=== PATIENT | male | born 1985 | race Caucasian/White ===

== ENCOUNTER 2017-11-20 22:26 | Observation (INO) | payer OTHER ==
[~2017-11-20] VITALS: Ht 180.3 cm; Wt 70.5 kg
[~2017-11-20 22:26] MED LIST: ALBU17I INH; ASPI325T PO; ATEN-100 PO; BUPR-197 PO; ISOS20 PO; NITR0.4S SL; REME45TA PO
[2017-11-20 22:34] VITALS: BP 130/76; PULSE 93; RESP 16; TEMP 98.5; O2SAT 96
[2017-11-20] MEDS ORDERED: SODIUM CHLORIDE 0.9% FLUSH 10 ML FLUSH IVF PRN (22:45)
[2017-11-20] MEDS ORDERED: SODIUM CHLORID 0.9% 500 ML INJ 500 ML IV ONE (22:45)
[2017-11-20] MEDS ORDERED: NITROGLYCERIN-D5W 50 MG/250 ML 250 ML IV ONE (22:45)
[2017-11-20] MEDS ORDERED: NITROGLYCERIN/DEXTROSE 5% 250 ML for chest pain IV PRN (22:45)
--- NOTE | 2017-11-20 22:55 | PD ---
HPI Chief Complaint: Chest Pain Time Seen by Provider: 22:39 Travel History International Travel<30 days: No Contact w/Intl Traveler<30days: No Traveled to known affect area: No History of Present Illness HPI Is a 32-year-old man presents to the emergency department complaining of chest pain. He is in extensive cardiac history related to congenital heart disease as well as atherosclerotic CAD. 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 She also had 2 stents, most recently about a week and a half ago at [facility] in [place] he reports he had a stent placed after he had a non-ST elevation DE. He reports he also developed a DVT during that hospitalization and was placed on Coumadin. Reports having had a DVT in the past. He was kept in the hospital for about a week or so after the event and was discharged back to correctional facility. He was then moved to the correctional facility in the area here. Today started develop worsening chest pain that rated in the left arm, similar to his previous DE. He was given a total 6 nitroglycerin, 8 mg of morphine, and 650 mg of aspirin prior to arrival here. Still complains of pain. He also complains that he was cleaning today with bleach and touched his right eye with his glove and has had irritation in his right eye since that time. History Past Medical History Narrative Medical Congenital heart disease with ASD, mitral valve replacement, aortic valve replacement CAD with 2 stents Social History Alcohol Use: No Tobacco Use: No Allergies-Medications (Allergen,Severity, Reaction): Coded Allergies: egg (Unverified Allergy, Severe, THRAOT SWELLS, 11/20/17) ketorolac (Unverified Allergy, Severe, THROAT SWELLS, 11/20/17) lithium (Unverified Allergy, Severe, THROAT SWELLS, 11/20/17) tramadol (Unverified Allergy, Severe, THROAT SWELLS, 11/20/17) Reported Meds & Prescriptions Reported Meds & Active Scripts Active Reported Atenolol 25 Mg Tab 25 Mg PO DAILY Aspirin 325 Mg Tab 325 Mg PO DAILY Nitrostat (Nitroglycerin) 0.4 Mg Subl 0.4 Mg SL PRN 1 TAB SL EVERY 5 MINS X 3 PRN CHEST PAIN Remeron (Mirtazapine) 45 Mg Tab 45 Mg PO HS Wellbutrin (Bupropion HCl) 100 Mg Tab 100 Mg PO TID Isordil 20 Mg Tab (Isosorbide Dinitrate) 20 Mg Tab 20 Mg PO BID Proventil Mdi (Albuterol Sulfate) 17 Gm Aero 2 Puff INH Q8HPRN Review of Systems Except as stated in HPI: all other systems reviewed are Neg Physical Exam Narrative GENERAL: Well-appearing 32-year-old man, no acute distress per SKIN: Focused skin assessment warm/dry. HEAD: Atraumatic. Normocephalic. EYES: Right is injected with a little bit of periorbital swelling. Some tearing. Left eye is unremarkable. ENT: No nasal bleeding or discharge. Mucous membranes pink and moist. NECK: Trachea midline. No JVD. CARDIOVASCULAR: Regular rate and rhythm. No murmur appreciated. RESPIRATORY: No accessory muscle use. Clear to auscultation. Breath sounds equal bilaterally. GASTROINTESTINAL: Abdomen soft, non-tender, nondistended. Hepatic and splenic margins not palpable. MUSCULOSKELETAL: No obvious deformities. No clubbing. No cyanosis. No edema. NEUROLOGICAL: Awake and alert. No obvious cranial nerve deficits. Motor grossly within normal limits. Normal speech. PSYCHIATRIC: Appropriate mood and affect; insight and judgment normal. Data Data Last Documented VS Vital Signs Date Time Temp Pulse Resp B/P (MAP) Pulse Ox O2 Delivery O2 Flow Rate FiO2 11/20/17 23:15 90 130/76 11/20/17 22:34 98.5 16 96 Orders Orders Electrocardiogram (11/20/17 22:41) Ckmb (Isoenzyme) Profile (11/20/17 22:41) Complete Blood Count With Diff (11/20/17 22:41) Comprehensive Metabolic Panel (11/20/17 22:41) Magnesium (Mg) (11/20/17 22:41) Prothrombin Time / Inr (Pt) (11/20/17 22:41) Act Partial Throm Time (Ptt) (11/20/17 22:41) Troponin I (11/20/17 22:41) Chest, Single Ap (11/20/17 22:41) Ecg Monitoring (11/20/17 22:41) Iv Access Insert/Monitor (11/20/17 22:41) Oximetry (11/20/17 22:41) Oxygen Administration (11/20/17 22:41) Sodium Chloride 0.9% Flush (Ns Flush) (11/20/17 22:45) Sodium Chlorid 0.9% 500 Ml Inj (Ns 500 M (11/20/17 22:45) Eye Irrigation (11/20/17 22:41) Nitroglycerin-D5w 50 Mg/250 Ml (Nitrogly (11/20/17 23:00) Proparacaine 0.5% Opth Soln (Alcaine 0.5 (11/20/17 23:00) CKMB (11/20/17 22:45) CKMB% (11/20/17 22:45) ^ Obtain (11/21/17 00:25) Place In Observation (11/21/17 ) Vital Signs (Adult) Q4H (11/21/17 00:25) Activity Oob With Assistance (11/21/17 00:25) [employer]ox Machine Mechanic / Telemetry .CONTINUOUS (11/21/17 00:25) Intake + Output CRISTINA.QSHIFT (11/21/17 00:25) Diet Heart Healthy (11/21/17 Breakfast) Sodium Chloride 0.9% Flush (Ns Flush) (11/21/17 00:30) Sodium Chloride 0.9% Flush (Ns Flush) (11/21/17 09:00) Ondansetron Inj (Zofran Inj) (11/21/17 00:30) Comprehensive Metabolic Panel (11/21/17 06:00) Complete Blood Count With Diff (11/21/17 06:00) Troponin I (11/21/17 06:00) Troponin I (11/21/17 12:00) Scd Bilateral/Knee High CRISTINA.BID (11/21/17 00:25) Byron Bilateral/Knee High CRISTINA.QSHIFT (11/21/17 00:29) Acetaminophen (Tylenol) (11/21/17 00:30) Morphine Inj (Morphine Inj) (11/21/17 00:30) Oxycodone (Roxicodone) (11/21/17 00:30) Docusate Sodium-Senna (Rosa-Colace) (11/21/17 09:00) Magnesium Hydroxide Liq (Milk Of Magnesi (11/21/17 00:30) Sennosides (Senokot) (11/21/17 00:30) Bisacodyl Supp (Dulcolax Supp) (11/21/17 00:30) Lactulose Liq (Lactulose Liq) (11/21/17 00:30) Nitroglycerin 2% Oint (Nitroglycerin 2% (11/21/17 00:30) Lorazepam Inj (Ativan Inj) (11/21/17 00:45) Admit Order (Ed Use Only) (11/21/17 ) Labs Laboratory Tests Test 11/20/17 22:45 White Blood Count 9.2 TH/MM3 Red Blood Count 4.10 MIL/MM3 Hemoglobin 13.4 GM/DL Hematocrit 37.6 % Mean Corpuscular Volume 91.7 FL Mean Corpuscular Hemoglobin 32.7 PG Mean Corpuscular Hemoglobin Concent 35.7 % Red Cell Distribution Width 12.9 % Platelet Count 224 TH/MM3 Mean Platelet Volume 9.6 FL Neutrophils (%) (Auto) 49.1 % Lymphocytes (%) (Auto) 28.9 % Monocytes (%) (Auto) 9.4 % Eosinophils (%) (Auto) 9.6 % Basophils (%) (Auto) 3.0 % Neutrophils # (Auto) 4.5 TH/MM3 Lymphocytes # (Auto) 2.6 TH/MM3 Monocytes # (Auto) 0.9 TH/MM3 Eosinophils # (Auto) 0.9 TH/MM3 Basophils # (Auto) 0.3 TH/MM3 CBC Comment DIFF FINAL Differential Comment Prothrombin Time 10.1 SEC Prothromb Time International Ratio 1.0 RATIO Activated Partial Thromboplast Time 26.4 SEC Blood Urea Nitrogen 12 MG/DL Creatinine 1.01 MG/DL Random Glucose 92 MG/DL Total Protein 7.3 GM/DL Albumin 3.9 GM/DL Calcium Level 8.7 MG/DL Magnesium Level 1.9 MG/DL Alkaline Phosphatase 61 U/L Aspartate Amino Transf (AST/SGOT) 11 U/L Alanine Aminotransferase (ALT/SGPT) 17 U/L Total Bilirubin 0.3 MG/DL Sodium Level 143 MEQ/L Potassium Level 4.0 MEQ/L Chloride Level 109 MEQ/L Carbon Dioxide Level 24.8 MEQ/L Anion Gap 9 MEQ/L Estimat Glomerular Filtration Rate 87 ML/MIN Total Creatine Kinase 145 U/L Creatine Kinase MB 0.7 NG/ML Troponin I LESS THAN 0.02 NG/ML MDM Medical Decision Making Medical Screen Exam Complete: Yes Emergency Medical Condition: Yes Interpretation(s) My review of chest x-ray: Normal sinus rhythm at a rate of 84, normal axis, normal intervals, incomplete right bundle branch block, no evidence of acute ischemia. LABS: CBC unremarkable. CMP unremarkable. Troponin negative. C coags unremarkable. Chest x-ray hypoinflated. Differential Diagnosis CAD, PE, ACS, noncardiac chest pain, other Narrative Course Medical decision making INITIAL calls a 32-year-old man presents to the emergency department complaining of worsening chest pain. Reports history of CAD with recent DE and stent placement. Looks well. Also some chemical irritation to the right eye there is reports is from rubbing his eye with gloves to use to clean with bleach. Will continue irrigation of the right eye. He states he irrigated some already. Check labs, EKG, x-ray, reassess. FINAL: Initial workup is unremarkable. Patient complaining of ongoing pain. Given his recent history, I do not think patients appropriate candidate for the chest pain center. I spoke with Dr. Finney, who admit patient observation. Diagnosis Primary Impression: Chest pain Additional Impression: Eye irritation Omar Jimenez MD Nov 20, 2017 22:54
[2017-11-20 22:59] LABS: AUTOMATED NEUTROPHIL # 4.5 TH/MM3 (1.8-7.7); BASOPHIL # 0.3 TH/MM3 (0-0.2); EOSINOPHIL # 0.9 TH/MM3 (0-0.4); EOSINOPHIL % 9.6 % (0.0-4.0); HEMATOCRIT 37.6 % (39.0-51.0); HEMOGLOBIN 13.4 GM/DL (13.0-17.0); LYMPH % 28.9 % (9.0-44.0); LYMPHOCYTE # 2.6 TH/MM3 (1.0-4.8); MEAN CELL VOLUME 91.7 FL (80.0-100.0); MEAN CORPUSCULAR HEMOGLOBIN 32.7 PG (27.0-34.0); MEAN CORPUSCULAR HGB CONC 35.7 % (32.0-36.0); MEAN PLATELET VOLUME 9.6 FL (7.0-11.0); MONO % 9.4 % (0.0-8.0); MONOCYTE # 0.9 TH/MM3 (0-0.9); NEUT % 49.1 % (16.0-70.0); PLATELET COUNT 224 TH/MM3 (150-450); RED CELL DISTRIBUTION WIDTH 12.9 % (11.6-17.2); WHITE BLOOD COUNT 9.2 TH/MM3 (4.0-11.0)
[2017-11-20] MEDS ORDERED: PROPARACAINE HCL 0.5% OPHT SOLN 15 ML BTL RIGHT EYE ONE (23:00)
[2017-11-20] MEDS ORDERED: NITROGLYCERIN/DEXTROSE 5% 250 ML for chest pain IV ONE (23:00)
--- NOTE | 2017-11-20 23:11 | RADRPT ---
EXAM DATE/TIME: 11/20/2017 22:46 [facility] COMPARISON: CHEST SINGLE AP, September 12, 2011, 23:31. INDICATIONS : Chest pain MEDICAL HISTORY : Cardiovascular disease. SURGICAL HISTORY : Coronary artery stent. CABG. ENCOUNTER: Initial ACUITY: 1 day PAIN SCORE: 6/10 LOCATION: chest FINDINGS: The patient is status post sternotomy. The heart size is within normal limits. The lungs demonstrate low lung volume with suspected minimal compressive changes at the bases. No effusion is seen. CONCLUSION: Hypoinflated lungs. Luis F Parsons MD on November 20, 2017 at 23:08 Board Certified Radiologist. This report was verified electronically.
[2017-11-20 23:24] LABS: ALBUMIN 3.9 GM/DL (3.4-5.0); AST (GOT) 11 U/L (15-37); BICARBONATE 24.8 MEQ/L (21.0-32.0); BLOOD UREA NITROGEN 12 MG/DL (7-18); CALCIUM 8.7 MG/DL (8.5-10.1); CHLORIDE 109 MEQ/L (98-107); CREATININE 1.01 MG/DL (0.60-1.30); GLOMERULAR FILTRATION RATE 87 ML/MIN (>89); GLUCOSE,RANDOM 92 MG/DL (74-106); MAGNESIUM 1.9 MG/DL (1.5-2.5); SODIUM (NA) 143 MEQ/L (136-145)
[2017-11-20 23:25] LABS: ALT (GPT) 17 U/L (12-78)
[2017-11-20 23:29] LABS: ALKALINE PHOSPHATASE 61 U/L (45-117); TOTAL BILIRUBIN ADULT 0.3 MG/DL (0.2-1.0); TOTAL PROTEIN 7.3 GM/DL (6.4-8.2); TROPONIN I LESS THAN 0.02 NG/ML (0.02-0.05)
[2017-11-20 23:31] LABS: PROTHROMBIN TIME - PATIENT 10.1 SEC (9.8-11.6)
[2017-11-21] VITALS (9 sets, daily range): BP systolic 110–139; BP diastolic 68–80; PULSE 51–89; RESP 14–18; TEMP 97.6–98.2; O2SAT 95–100
[2017-11-21] MEDS ORDERED: SODIUM CHLORIDE 0.9% FLUSH 10 ML FLUSH IV FLUSH PRN (00:30)
[2017-11-21] MEDS ORDERED: BISACODYL 10 MG SUPP RECTAL PRN (00:30)
[2017-11-21] MEDS ORDERED: MAGNESIUM HYDROXIDE SUSP 30 ML CUP PO PRN (00:30)
[2017-11-21] MEDS ORDERED: SENNOSIDES 8.6 MG TAB PO PRN (00:30)
[2017-11-21] MEDS ORDERED: ONDANSETRON HCL 4 MG/2 ML VIAL IVP PRN (00:30)
[2017-11-21] MEDS ORDERED: LACTULOSE SYRUP 20 GM/30 ML CUP PO PRN (00:30)
[2017-11-21] MEDS ORDERED: NITROGLYCERIN 2% OINT 1 GM PACKET TOPICAL PRN (00:30)
[2017-11-21] MEDS ORDERED: ACETAMINOPHEN 325 MG TAB PO PRN (00:30)
[2017-11-21] MEDS: MORPHINE SULFATE 2 MG/ML INJ IV PUSH PRN ×5 (00:57→21:17)
--- NOTE | 2017-11-21 01:10 | HHI.HP ---
HPI Service [facility] Primary Care Physician No Primary Care Physician Admission Diagnosis Chest pain Diagnoses: (1) Chest pain Diagnosis: Principal (2) Eye irritation Diagnosis: Principal Travel History International Travel<30 Days: No Contact w/Intl Traveler <30 Da: No Traveled to Known Affected Are: No History of Present Illness This is a 32-year-old male with an apparent PMH of Congenital Heart Disease w/ ASD, s/p MVR and AVR in addition to CAD s/p Cardiac Stents who was brought to the ER by EMS w/ [employer]rections [employer] secondary to complaints of chest pain. Pt states pain is substernal, pressure-like, 10/10, radiates to back, no alleviating factors. S/p Morphine 8mg and NTG x6, states NTG and Morphine don' t help w/ pain, continues to complain of 10/10 pain. Reports he was recently admitted to [facility] for similar symptoms approx 1wk ago, had stent placed to LAD. Does not know which medications he's supposed to be taking. Also notes irritation to right eye after cleaning his cell w/ bleach and rubbing his eye, currently receiving irrigation. On arrival, BP 130/76, HR 93, O2 sat 96% on RA , Afebrile. CBC unremarkable. Chemistry essentially unremarkable except for GFR 87. Troponin negative. INR 1.0. CXR with hypoinflated lungs. EKG with no acute ischemia. Placed on Nitro gtt in ER, however no improvement in pain complaints. Review of Systems Except as stated in HPI: all other systems reviewed are Neg ROS: 14 point review of systems otherwise negative. Past Family Social History Past Medical History PMH: Congenital Heart Disease w/ ASD, s/p MVR and AVR in addition to CAD s/p Cardiac Stents Past Surgical History PAST SURGICAL HISTORY: Mitral Valve Replacement, Aortic Valve Replacement, Cardiac Stents Allergies: Coded Allergies: egg (Unverified Allergy, Severe, THRAOT SWELLS, 11/20/17) ketorolac (Unverified Allergy, Severe, THROAT SWELLS, 11/20/17) lithium (Unverified Allergy, Severe, THROAT SWELLS, 11/20/17) tramadol (Unverified Allergy, Severe, THROAT SWELLS, 11/20/17) Family History PAST FAMILY HISTORY: Reviewed. No h/o DM or CAD Social History PAST SOCIAL HISTORY: Negative for alcohol, tobacco or drugs. Currently in [facility] Physical Exam Vital Signs Vital Signs Date Time Temp Pulse Resp B/P (MAP) Pulse Ox O2 Delivery O2 Flow Rate FiO2 11/20/17 23:15 90 130/76 11/20/17 22:34 98.5 93 16 130/76 (94) 96 Physical Exam PE: GENERAL: Young white male in no acute distress. Officers at bedside. HEENT: PERRLA, EOMI. No scleral icterus or conjunctival pallor. No lid lag or facial droop. Right eye with irrigation. CARDIOVASCULAR: Regular rate and rhythm. No obvious murmurs to auscultation. No chest tenderness to palpation. RESPIRATORY: No obvious rhonchi or wheezing. Clear to auscultation. Breath sounds equal bilaterally. GASTROINTESTINAL: Abdomen soft, non-tender, nondistended. BS normal. MUSCULOSKELETAL: Extremities without clubbing, cyanosis, or edema. No obvious deformities. NEUROLOGICAL: Awake, alert and oriented x4. No focal neurologic deficits. Moving both upper and lower extremities spontaneously. Laboratory Laboratory Tests Test 11/20/17 22:45 White Blood Count 9.2 Red Blood Count 4.10 Hemoglobin 13.4 Hematocrit 37.6 Mean Corpuscular Volume 91.7 Mean Corpuscular Hemoglobin 32.7 Mean Corpuscular Hemoglobin Concent 35.7 Red Cell Distribution Width 12.9 Platelet Count 224 Mean Platelet Volume 9.6 Neutrophils (%) (Auto) 49.1 Lymphocytes (%) (Auto) 28.9 Monocytes (%) (Auto) 9.4 Eosinophils (%) (Auto) 9.6 Basophils (%) (Auto) 3.0 Neutrophils # (Auto) 4.5 Lymphocytes # (Auto) 2.6 Monocytes # (Auto) 0.9 Eosinophils # (Auto) 0.9 Basophils # (Auto) 0.3 CBC Comment DIFF FINAL Differential Comment Prothrombin Time 10.1 Prothromb Time International Ratio 1.0 Activated Partial Thromboplast Time 26.4 Blood Urea Nitrogen 12 Creatinine 1.01 Random Glucose 92 Total Protein 7.3 Albumin 3.9 Calcium Level 8.7 Magnesium Level 1.9 Alkaline Phosphatase 61 Aspartate Amino Transf (AST/SGOT) 11 Alanine Aminotransferase (ALT/SGPT) 17 Total Bilirubin 0.3 Sodium Level 143 Potassium Level 4.0 Chloride Level 109 Carbon Dioxide Level 24.8 Anion Gap 9 Estimat Glomerular Filtration Rate 87 Total Creatine Kinase 145 Creatine Kinase MB 0.7 Troponin I LESS THAN 0.02 Result Diagram: 11/20/17224411/20/172244 Caprini VTE Risk Assessment Caprini VTE Risk Assessment: No/Low Risk (score <= 1) Caprini Risk Assessment Model Point Value = 1 Point Value = 2 Point Value = 3 Point Value = 5 Age 41-60 Minor surgery BMI > 25 kg/m2 Swollen legs Varicose veins or History of unexplained or recurrent spontaneous Oral contraceptives or hormone replacement Sepsis (< 1 month) Serious lung disease, including pneumonia (< 1 month) Abnormal pulmonary function Acute myocardial infarction Congestive heart failure (< 1 month) History of inflammatory bowel disease Medical patient at bed rest Age 61-74 Arthroscopic surgery Major open surgery (> 45 min) Laparoscopic surgery (> 45 min) Malignancy Confined to bed (> 72 hours) Immobilizing plaster cast Central venous access Age >= 75 History of VTE Family history of VTE Factor V Leiden Prothrombin [id number] Lupus anticoagulant Anticardiolipin antibodies Elevated serum homocysteine Heparin-induced thrombocytopenia Other congenital or acquired thrombophilia Stroke (< 1 month) Elective arthroplasty Hip, pelvis, or leg fracture Acute spinal cord injury (< 1 month) Prophylaxis Regimen Total Risk Factor Score Risk Level Prophylaxis Regimen 0-1 Low Early ambulation 2 Moderate Order ONE of the following: *Sequential Compression Device (SCD) *Heparin 5000 units SQ BID 3-4 Higher Order ONE of the following medications: *Heparin 5000 units SQ TID *Enoxaparin/Lovenox 40 mg SQ daily (WT < 150 kg, CrCl > 30 mL/min) *Enoxaparin/Lovenox 30 mg SQ daily (WT < 150 kg, CrCl > 10-29 mL/min) *Enoxaparin/Lovenox 30 mg SQ BID (WT < 150 kg, CrCl > 30 mL/min) AND/OR *Sequential Compression Device (SCD) 5 or more Highest Order ONE of the following medications: *Heparin 5000 units SQ TID (Preferred with Epidurals) *Enoxaparin/Lovenox 40 mg SQ daily (WT < 150 kg, CrCl > 30 mL/min) *Enoxaparin/Lovenox 30 mg SQ daily (WT < 150 kg, CrCl > 10-29 mL/min) *Enoxaparin/Lovenox 30 mg SQ BID (WT < 150 kg, CrCl > 30 mL/min) AND *Sequential Compression Device (SCD) Assessment and Plan Problem List: (1) Chest pain ICD Code: R07.9 - Chest pain, unspecified (2) Eye irritation ICD Code: H57.8 - Other specified disorders of eye and adnexa Assessment and Plan A/P: 1. Chest Pain: reports extensive cardiac history including ASD, s/p MVR/AVR and recent admit to [facility] 1wk ago w/ Stent to LAD. Will attempt to obtain records for confirmation. Reports 10/10 pain not alleviated by Morphine or NTG , will d/c NTG gtt as no benefit. Morphine/Ativan prn for chest pain. Admit for Observation, place on telemetry, check serial cardiac enzymes. ASA, Statin , B-alicia. 2. Eye Irritation: Right eye irritation after rubbing eye w/ bleach, currently undergoing irrigation, will monitor. 3. DVT Prophylaxis: SCD/Teds 4. Social work for d/c planning as needed. 5. Case discussed at length w/ ER physician, labs/records/imaging reviewed by me. Michelle Siu MD Nov 21, 2017 01:10
[2017-11-21] MEDS: LORazepam 2 MG/ML VIAL IV PUSH PRN ×4 (02:50→22:58)
[2017-11-21] MEDS ORDERED: PROMETHAZINE INJ 25 MG/ML VIAL IM PRN (04:15)
[2017-11-21] MEDS: DOCUSATE SODIUM 50 MG/SENNA 8.6 MG TAB PO SCH ×2 (08:19→21:16)
[2017-11-21] MEDS ORDERED: PROT40TA PO (08:29)
[2017-11-21] MEDS ORDERED: CLON-409 PO (08:29)
[2017-11-21] MEDS ORDERED: ATOR10TA15 PO (08:29)
[2017-11-21] MEDS ORDERED: PLAV75TA29 PO (08:29)
[2017-11-21] MEDS: SODIUM CHLORIDE 0.9% FLUSH 10 ML FLUSH IV FLUSH SCH ×2 (08:48→21:16)
[2017-11-21] MEDS: METOPROLOL TARTRATE 25 MG TAB PO SCH ×2 (09:00→21:16)
[2017-11-21] MEDS ORDERED: ASPIRIN EC 81 MG TABEC PO SCH (09:00)
[2017-11-21] MEDS ORDERED: PRAVASTATIN SOD 40 MG TAB PO SCH (09:00)
--- NOTE | 2017-11-21 09:04 | PD.CONS ---
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 He has been maintained on asa, plavix , statin and isosorbide per patient. Patient is an inmate at a correctional facility and states he developed crushing anterior chest pain referring to L arm reminiscent of prior PR. Nitro and morphine have offered no relief of symptoms and he remains nauseated. Troponin level normal and EKG does not demonstrate concerning ST segment or T wave changes; he states they usually don' t. Review of Systems Consitutional: DENIES: Fatigue, Fever, Chills, Weight gain, Weight loss Respiratory: DENIES: Cough, Snoring, Shortness of breath, Wheezing, Sputum production Cardiovascular: DENIES: Palpitations, Syncope, Tachycardia Gastrointestinal: DENIES: Vomiting, Change in bowel habits, Reflux, Bloody stools, Melena Past Family Social History Allergies: Coded Allergies: Iodine and Iodide Containing Produc (Verified Allergy, Severe, 11/21/17) "throat swelling" egg (Unverified Allergy, Severe, THRAOT SWELLS, 11/20/17) ketorolac (Unverified Allergy, Severe, THROAT SWELLS, 11/20/17) lithium (Unverified Allergy, Severe, THROAT SWELLS, 11/20/17) ondansetron (Verified Allergy, Severe, 11/21/17) Throat swelling tramadol (Unverified Allergy, Severe, THROAT SWELLS, 11/20/17) Past Medical History Congenital Heart Disease w/ ASD, s/p MVR in addition to CAD s/p Cardiac Stents Past Surgical History Mitral Valve Replacement, ASD repair, Cardiac Stents Reported Medications Reported Meds & Active Scripts Active Reported Atorvastatin (Atorvastatin Calcium) 10 Mg Tab 10 Mg PO DAILY Clonidine ER 12 HR (Clonidine HCl) 0.1 Mg Tab 0.3 Mg PO DAILY Protonix (Pantoprazole Sodium) 40 Mg Tab 40 Mg PO DAILY Plavix (Clopidogrel Bisulfate) 75 Mg Tab 75 Mg PO DAILY Atenolol 25 Mg Tab 25 Mg PO DAILY Aspirin 325 mg (Aspirin) 325 Mg Tab 81 Mg PO DAILY Nitrostat (Nitroglycerin) 0.4 Mg Subl 0.4 Mg SL PRN 1 TAB SL EVERY 5 MINS X 3 PRN CHEST PAIN Remeron 45 mg (Mirtazapine) 45 Mg Tab 45 Mg PO HS Wellbutrin (Bupropion HCl) 100 Mg Tab 150 Mg PO BID Isordil 20 Mg Tab (Isosorbide Dinitrate) 20 Mg Tab 10 Mg PO DAILY Proventil Mdi (Albuterol Sulfate) 17 Gm Aero 2 Puff INH Q8HPRN Active Ordered Medications Current Medications Medications (Trade) Dose Ordered Sig/Arabella Route Start Time Stop Time Status Last Admin (NS Flush) 2 ml UNSCH PRN IV FLUSH 11/21/17 00:30 (NS Flush) 2 ml BID IV FLUSH 11/21/17 09:00 11/21/17 08:48 (Tylenol) 650 mg Q6H PRN PO 11/21/17 00:30 (Morphine Inj) 4 mg Q3H PRN IV PUSH 11/21/17 00:30 11/21/17 06:05 (Roxicodone) 5 mg Q4H PRN PO 11/21/17 00:30 11/21/17 08:39 (Rosa-Colace) 1 tab BID PO 11/21/17 09:00 (Milk Of Magnesia Liq) 30 ml Q12H PRN PO 11/21/17 00:30 (Senokot) 17.2 mg Q12H PRN PO 11/21/17 00:30 (Dulcolax Supp) 10 mg DAILY PRN RECTAL 11/21/17 00:30 (Lactulose Liq) 30 ml DAILY PRN PO 11/21/17 00:30 (Nitroglycerin 2% Oint) 0.5 inch Q6HR PRN TOPICAL 11/21/17 00:30 (Ativan Inj) 1 mg Q3H PRN IV PUSH 11/21/17 00:45 11/21/17 08:39 (Ecotrin Ec) 81 mg DAILY PO 11/21/17 09:00 11/21/17 08:38 (Pravachol) 40 mg DAILY PO 11/21/17 09:00 11/21/17 08:38 (Lopressor) 25 mg Q12HR PO 11/21/17 09:00 (Phenergan Inj) 12.5 mg Q6H PRN IM 11/21/17 04:15 Family History No h/o DM Social History Negative for alcohol, tobacco or drugs. Currently in Correctional Facility Physical Exam Vital Signs Vital Signs Date Time Temp Pulse Resp B/P (MAP) Pulse Ox O2 Delivery O2 Flow Rate FiO2 11/21/17 07:18 97.7 66 18 110/78 (89) 98 11/21/17 05:11 98.2 89 18 139/80 (99) 98 11/21/17 03:08 97.7 69 18 128/71 (90) 95 11/21/17 03:05 11/21/17 02:46 63 14 118/68 (85) 98 Room Air 11/20/17 23:15 90 130/76 11/20/17 22:34 98.5 93 16 130/76 (94) 96 Physical Exam GENERAL: SKIN: Warm and dry. HEAD: Atraumatic. Normocephalic. EYES: Pupils equal and round. No scleral icterus. ENT: No nasal bleeding or discharge. NECK: Trachea midline. No JVD. CARDIOVASCULAR: Regular rate and rhythm. no murmurs RESPIRATORY: No accessory muscle use. Clear to auscultation. Breath sounds equal bilaterally. GASTROINTESTINAL: Abdomen soft, non-tender, nondistended. Hepatic and splenic margins not palpable. MUSCULOSKELETAL: Extremities without clubbing, cyanosis, or edema. No obvious deformities. NEUROLOGICAL: Awake and alert. No obvious cranial nerve deficits. Normal speech. PSYCHIATRIC: Appropriate mood and affect; insight and judgment normal. Laboratory Laboratory Tests Test 11/20/17 22:45 White Blood Count 9.2 Red Blood Count 4.10 Hemoglobin 13.4 Hematocrit 37.6 Mean Corpuscular Volume 91.7 Mean Corpuscular Hemoglobin 32.7 Mean Corpuscular Hemoglobin Concent 35.7 Red Cell Distribution Width 12.9 Platelet Count 224 Mean Platelet Volume 9.6 Neutrophils (%) (Auto) 49.1 Lymphocytes (%) (Auto) 28.9 Monocytes (%) (Auto) 9.4 Eosinophils (%) (Auto) 9.6 Basophils (%) (Auto) 3.0 Neutrophils # (Auto) 4.5 Lymphocytes # (Auto) 2.6 Monocytes # (Auto) 0.9 Eosinophils # (Auto) 0.9 Basophils # (Auto) 0.3 CBC Comment DIFF FINAL Differential Comment Prothrombin Time 10.1 Prothromb Time International Ratio 1.0 Activated Partial Thromboplast Time 26.4 Blood Urea Nitrogen 12 Creatinine 1.01 Random Glucose 92 Total Protein 7.3 Albumin 3.9 Calcium Level 8.7 Magnesium Level 1.9 Alkaline Phosphatase 61 Aspartate Amino Transf (AST/SGOT) 11 Alanine Aminotransferase (ALT/SGPT) 17 Total Bilirubin 0.3 Sodium Level 143 Potassium Level 4.0 Chloride Level 109 Carbon Dioxide Level 24.8 Anion Gap 9 Estimat Glomerular Filtration Rate 87 Total Creatine Kinase 145 Creatine Kinase MB 0.7 Troponin I LESS THAN 0.02 Result Diagram: 11/20/17224411/20/172244 Imaging Last 24 hours Impressions Chest X-Ray 11/20/172240 Signed Impressions: Service Date/Time: , November 20, 2017 22:46 - CONCLUSION: Hypoinflated lungs. 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 He has been maintained on asa, plavix, statin and isosorbide per patient. Patient is an inmate at a correctional facility and states he developed crushing anterior chest pain referring to L arm reminiscent of prior PR. Nitro and morphine have offered no relief of symptoms and he remains nauseated. Troponin level normal and EKG does not demonstrate concerning ST segment or T wave changes; he states they usually don't. unstable angina- will proceed with lexiscan, keep npo 2D echo. monitor troponins Priyanka Garcia Nov 21, 2017 09:04
--- NOTE | 2017-11-21 09:44 | HHI.PR ---
Subjective Remarks Follow up on patient with CP. Patient seen and examined. Patient continues to complain of chest pain. He also endorses nausea but is eating peanut butter and paulina crackers and drinking a Gatorade. He denies any shortness of breath. He continues to have irritation in the right eye. He denies any fever or chills. He is afebrile. VSS. Objective Vitals Vital Signs Date Time Temp Pulse Resp B/P (MAP) Pulse Ox O2 Delivery O2 Flow Rate FiO2 11/21/17 07:18 97.7 66 18 110/78 (89) 98 11/21/17 05:11 98.2 89 18 139/80 (99) 98 11/21/17 03:08 97.7 69 18 128/71 (90) 95 11/21/17 03:05 11/21/17 02:46 63 14 118/68 (85) 98 Room Air 11/20/17 23:15 90 130/76 11/20/17 22:34 98.5 93 16 130/76 (94) 96 I/O 11/20/17 11/20/17 11/20/17 11/21/17 11/21/17 11/21/17 07:00 15:00 23:00 07:00 15:00 23:00 Intake Total 502.5 ml Balance 502.5 ml Intake IV Total 502.5 ml Result Diagram: 11/20/17224411/20/172244 Imaging Last Impressions Chest X-Ray 11/20/172240 Signed Impressions: Service Date/Time: October 22:46 - CONCLUSION: Hypoinflated lungs. Luis F Parsons MD Objective Remarks GENERAL: Well developed, well nourished young white male patient in no acute distress. Officers at bedside. Awake and alert. Sitting up in bed eating. HEENT: PERRLA, EOMI. No scleral icterus or conjunctival pallor. No lid lag or facial droop. Right eye swollen and erythematous. CARDIOVASCULAR: Regular rate and rhythm. No obvious murmurs to auscultation. No chest tenderness to palpation. RESPIRATORY: Nonlabored. Clear to auscultation. Breath sounds equal bilaterally. No obvious rhonchi or wheezing. GASTROINTESTINAL: Abdomen soft, non-tender, nondistended. BS normal. MUSCULOSKELETAL: Extremities without clubbing, cyanosis, or edema. No obvious deformities. RLE handcuffed to bed. NEUROLOGICAL: Awake and alert. Oriented. Motor and sensory functions grossly intact. No focal neurologic deficits. Moving both upper and lower extremities spontaneously. Medications and IVs Current Medications Medications (Trade) Dose Ordered Sig/Arabella Route Start Time Stop Time Status Last Admin (NS Flush) 2 ml UNSCH PRN IV FLUSH 11/21/17 00:30 (NS Flush) 2 ml BID IV FLUSH 11/21/17 09:00 11/21/17 08:48 (Tylenol) 650 mg Q6H PRN PO 11/21/17 00:30 (Morphine Inj) 4 mg Q3H PRN IV PUSH 11/21/17 00:30 11/21/17 06:05 (Roxicodone) 5 mg Q4H PRN PO 11/21/17 00:30 11/21/17 08:39 (Rosa-Colace) 1 tab BID PO 11/21/17 09:00 (Milk Of Magnesia Liq) 30 ml Q12H PRN PO 11/21/17 00:30 (Senokot) 17.2 mg Q12H PRN PO 11/21/17 00:30 (Dulcolax Supp) 10 mg DAILY PRN RECTAL 11/21/17 00:30 (Lactulose Liq) 30 ml DAILY PRN PO 11/21/17 00:30 (Nitroglycerin 2% Oint) 0.5 inch Q6HR PRN TOPICAL 11/21/17 00:30 (Ativan Inj) 1 mg Q3H PRN IV PUSH 11/21/17 00:45 11/21/17 08:39 (Ecotrin Ec) 81 mg DAILY PO 11/21/17 09:00 11/21/17 08:38 (Pravachol) 40 mg DAILY PO 11/21/17 09:00 11/21/17 08:38 (Lopressor) 25 mg Q12HR PO 11/21/17 09:00 (Phenergan Inj) 12.5 mg Q6H PRN IM 11/21/17 04:15 A/P Problem List: (1) Chest pain ICD Code: R07.9 - Chest pain, unspecified (2) Eye irritation ICD Code: H57.8 - Other specified disorders of eye and adnexa Assessment and Plan 32yo male with PMHX of congenital heart disease including ASD, s/p MVR/AVR and CAD with recent admit to [facility] 1wk ago s/p stent to LAD. 1. Chest Pain/Unstable angina CAD s/p several cardiac stents, most recently stent placement to LAD 1wk ago Congenital heart disease/ASD s/p MVR/AVR -Will attempt to obtain records for confirmation. Reports 10/10 pain not alleviated by Morphine or NTG, will d/c NTG gtt as no benefit. -Morphine/Ativan prn for chest pain. -initial troponin negative, continue to trend -continuous cardiac monitoring -Consult Cardiology, appreciate recommendations. Lexiscan and 2D echocardiogram ordered. -Continue ASA, Statin, B-alicia. 2. Eye Irritation: Right eye irritation after rubbing eye w/ bleach -Consult Ophthalmology, appreciate assistance 3. DVT Prophylaxis: SCD/Teds Discharge Planning Discharge pending further workup and cardiology clearance Peace Maria Nov 21, 2017 09:44
[2017-11-21 09:55] LABS: AUTOMATED NEUTROPHIL # 3.8 TH/MM3 (1.8-7.7); BASOPHIL # 0.2 TH/MM3 (0-0.2); BASOPHIL % 1.9 % (0.0-2.0); EOSINOPHIL % 11.4 % (0.0-4.0); HEMOGLOBIN 14.7 GM/DL (13.0-17.0); LYMPH % 32.2 % (9.0-44.0); LYMPHOCYTE # 2.7 TH/MM3 (1.0-4.8); MEAN CELL VOLUME 93.2 FL (80.0-100.0); MEAN CORPUSCULAR HEMOGLOBIN 32.5 PG (27.0-34.0); MEAN CORPUSCULAR HGB CONC 34.9 % (32.0-36.0); MEAN PLATELET VOLUME 10.3 FL (7.0-11.0); MONO % 9.4 % (0.0-8.0); MONOCYTE # 0.8 TH/MM3 (0-0.9); NEUT % 45.1 % (16.0-70.0); PLATELET COUNT 223 TH/MM3 (150-450); RED BLOOD COUNT 4.51 MIL/MM3 (4.50-5.90); RED CELL DISTRIBUTION WIDTH 12.9 % (11.6-17.2); WHITE BLOOD COUNT 8.5 TH/MM3 (4.0-11.0)
[2017-11-21 10:23] LABS: ALBUMIN 3.9 GM/DL (3.4-5.0); AST (GOT) 16 U/L (15-37); BICARBONATE 26.7 MEQ/L (21.0-32.0); BLOOD UREA NITROGEN 10 MG/DL (7-18); CALCIUM 8.8 MG/DL (8.5-10.1); CHLORIDE 106 MEQ/L (98-107); CREATININE 1.02 MG/DL (0.60-1.30); GLOMERULAR FILTRATION RATE 86 ML/MIN (>89); GLUCOSE,RANDOM 78 MG/DL (74-106); SODIUM (NA) 141 MEQ/L (136-145)
[2017-11-21 10:25] LABS: ALT (GPT) 16 U/L (12-78)
[2017-11-21 10:28] LABS: ALKALINE PHOSPHATASE 57 U/L (45-117); TOTAL BILIRUBIN ADULT 0.5 MG/DL (0.2-1.0); TOTAL PROTEIN 7.5 GM/DL (6.4-8.2); TROPONIN I LESS THAN 0.02 NG/ML (0.02-0.05)
--- NOTE | 2017-11-21 11:35 | EKG ---
Date Performed: 11/20/2017 Time Performed: 22:41:49 PTAGE: 32 years EKG: Sinus rhythm INCOMPLETE RIGHT BUNDLE BRANCH BLOCK BORDERLINE ECG PREVIOUS TRACING : 09/13/2011 11.41 Since the previous tracing, no significant change noted DOCTOR: Guillermo Black Interpretating Date/Time 11/21/2017 11:29:37
[2017-11-21] MEDS: ERYTHROMYCIN 0.5% OPTH OINT 3.5 GM TUBO RIGHT EYE SCH ×2 (12:31→18:33)
[2017-11-21] MEDS: CARBOXYMETHYLCELL SOD 0.5% OPTH SOLN 15 ML BTL RIGHT EYE PRN ×2 (12:31→18:33)
[2017-11-21] MEDS ORDERED: CARBOXYMETHYLCELL SOD 0.5% OPTH SOLN 15 ML BTL RIGHT EYE ONE (13:00)
[2017-11-21] MEDS ORDERED: PROCHLORPERAZINE INJ 10 MG/2 ML VIAL IV PUSH PRN (13:45)
--- NOTE | 2017-11-21 15:44 | ECHRPT ---
Indication: CHEST PAIN CONCLUSIONS Normal left ventricular size. Wall thickness is normal. The interatrial septum not well visualized. The aortic root and proximal ascending aorta are not well visualized. There is trace tricuspid valve regurgitation. The estimated pulmonary arterial pressure is 30.5 mmHg. The inferior vena cava was not well visualized. BP: 118 / 74 HR: 77 Rhythm: Sinus MEASUREMENTS (Male / Female) Normal Values Technical Quality:Fair 2D ECHO LV Diastolic Diameter PLAX 4.9 cm 4.2 - 5.9 / 3.9 - 5.3 cm LV Systolic Diameter PLAX 3.3 cm IVS Diastolic Thickness 0.7 cm 0.6 - 1.0 / 0.6 - 0.9 cm LVPW Diastolic Thickness 0.7 cm 0.6 - 1.0 / 0.6 - 0.9 cm LV Relative Wall Thickness 0.3 RV Internal Dim ED PLAX 2.8 cm LVOT Diameter 1.8 cm Aortic Root Diameter 2.6 cm LA Systolic Diameter LX 3.1 cm 3.0 - 4.0 / 2.7 - 3.8 cm M-MODE AV Cusp Separation MM 2.4 cm DOPPLER AV Peak Velocity 132.0 cm/s AV Peak Gradient 7.0 mmHg AV Mean Gradient 3.0 mmHg AV Velocity Time Integral 26.1 cm LVOT Peak Velocity 102.0 cm/s LVOT Peak Gradient 4.2 mmHg LVOT Velocity Time Integral 19.4 cm AV Area Cont Eq vti 1.9 cm AV Area Cont Eq pk 2.0 cm Mitral E Point Velocity 79.5 cm/s Mitral A Point Velocity 45.9 cm/s Mitral E to A Ratio 1.7 LV E' Lateral Velocity 16.8 cm/s Mitral E to LV E' Lateral Ratio 4.7 LV E' Septal Velocity 11.3 cm/s Mitral E to LV E' Septal Ratio 7.0 TR Peak Velocity 226.5 cm/s TR Peak Gradient 20.5 mmHg Right Atrial Pressure 10.0 mmHg Pulmonary Artery Systolic Pressu 30.5 mmHg Right Ventricular Systolic Press 30.5 mmHg PV Peak Velocity 57.1 cm/s PV Peak Gradient 1.3 mmHg FINDINGS LEFT VENTRICLE Normal left ventricular size. Wall thickness is normal. The left ventricular systolic function is normal with an estimated ejection fraction in the range of 60-65%. RIGHT VENTRICLE Normal right ventricular size and systolic function. LEFT ATRIUM The left atrial size is normal. RIGHT ATRIUM The right atrial size is normal. ATRIAL SEPTUM The interatrial septum not well visualized. AORTA The aortic root and proximal ascending aorta are not well visualized. MITRAL VALVE Structurally normal mitral valve. No mitral valve stenosis or regurgitation. AORTIC VALVE Trileaflet aortic valve. No aortic valve stenosis or regurgitation. TRICUSPID VALVE There is trace tricuspid valve regurgitation. The estimated pulmonary arterial pressure is 30.5 mmHg. PULMONARY VALVE No pulmonary valve regurgitation or stenosis. VESSELS The inferior vena cava was not well visualized. PERICARDIUM No pericardial effusion. Omar Sommers MD, FACC (Electronically Signed) Final Date:21 November 2017 15:43
[2017-11-22] MEDS: ERYTHROMYCIN 0.5% OPTH OINT 3.5 GM TUBO RIGHT EYE SCH
--- NOTE | 2017-11-22 16:47 | PD.AMA ---
Against Medical Advice Note Diagnosis: (1) Chest pain (2) Eye irritation Discharge Disposition: Against Medical Advice AMA Statement Patient Jair Jones has decided to leave the hospital against medical advice. This patient has the capacity to refuse care and understands the risks of leaving, including permanent disability and/or , and has had an opportunity to ask questions about his condition. The patient has been informed that he may return for care at any time, and follow up has been arranged/ advised. Peace Maria Nov 22, 2017 16:47
== END 2017-11-22 00:23 ==
LOC: NEPE 22:26 → EEVIPCON 11-21 00:44 → NEDA 11-21 00:44 → NEPHCDU 11-21 03:00
PROVIDERS: ADMIT Internal Medicine; ATTEND Internal Medicine
DX: R07.9 Chest pain, unspecified (principal); H57.8 Other specified disorders of eye and adnexa; R11.0 Nausea; I25.110 Atherosclerotic heart disease of native coronary artery with unstable angina pectoris; I25.2 Old myocardial infarction; Z87.74 Personal history of (corrected) congenital malformations of heart and circulatory system; Z95.2 Presence of prosthetic heart valve; Z86.718 Personal history of other venous thrombosis and embolism; Z79.01 Long term (current) use of anticoagulants
CPT/HCPCS: 71045; 80053; 82550; 82552; 83735; 84484; 85025; 85610; 85730; 93005; 93306; 96365; 96375; 96376; 99285; G0378; J0780; J2060; J2270; J7040

== ENCOUNTER 2017-12-02 21:45 | Observation (INO) | payer OTHER ==
[~2017-12-02] VITALS: Ht 180.3 cm; Wt 75.0 kg
[~2017-12-02 21:45] MED LIST changes: +ATOR10TA15 PO; +CLON-409 PO; +PLAV75TA29 PO; +PROT40TA PO
[2017-12-02 21:50] VITALS: BP 130/71; PULSE 110; RESP 28; O2SAT 96
[2017-12-02] MEDS ORDERED: SODIUM CHLORIDE 0.9% FLUSH 10 ML FLUSH IVF PRN (22:00)
[2017-12-02] MEDS ORDERED: SODIUM CHLOR 0.9% 1000 ML INJ 1,000 ML IV ONE (22:00)
[2017-12-02 22:08] LABS: AUTOMATED NEUTROPHIL # 5.3 TH/MM3 (1.8-7.7); BASOPHIL # 0.3 TH/MM3 (0-0.2); BASOPHIL % 3.1 % (0.0-2.0); EOSINOPHIL # 1.1 TH/MM3 (0-0.4); EOSINOPHIL % 10.2 % (0.0-4.0); HEMATOCRIT 41.7 % (39.0-51.0); HEMOGLOBIN 14.7 GM/DL (13.0-17.0); LYMPH % 30.5 % (9.0-44.0); LYMPHOCYTE # 3.3 TH/MM3 (1.0-4.8); MEAN CELL VOLUME 91.8 FL (80.0-100.0); MEAN CORPUSCULAR HEMOGLOBIN 32.2 PG (27.0-34.0); MEAN CORPUSCULAR HGB CONC 35.1 % (32.0-36.0); MEAN PLATELET VOLUME 10.1 FL (7.0-11.0); MONO % 7.6 % (0.0-8.0); MONOCYTE # 0.8 TH/MM3 (0-0.9); NEUT % 48.6 % (16.0-70.0); PLATELET COUNT 233 TH/MM3 (150-450); RED BLOOD COUNT 4.55 MIL/MM3 (4.50-5.90); RED CELL DISTRIBUTION WIDTH 12.6 % (11.6-17.2); WHITE BLOOD COUNT 10.9 TH/MM3 (4.0-11.0)
[2017-12-02] MEDS ORDERED: ASPI-516 CHEW (22:08)
[2017-12-02] MEDS ORDERED: ALBU6.7H INH (22:08)
[2017-12-02] MEDS ORDERED: BUPR100T4 PO (22:08)
[2017-12-02] MEDS ORDERED: LORA-474 PO (22:08)
[2017-12-02] MEDS ORDERED: ISOS10TA PO (22:08)
[2017-12-02] MEDS ORDERED: NITR1SUB3 SL (22:08)
[2017-12-02] MEDS ORDERED: ATEN25TA PO (22:08)
[2017-12-02] MEDS ORDERED: METOCLOPRAMIDE HCL 10 MG/2 ML VIAL IV PUSH ONE (22:15)
[2017-12-02] MEDS ORDERED: NITROGLYCERIN 2% OINT 1 GM PACKET TOPICAL ONE (22:15)
[2017-12-02] MEDS ORDERED: MORPHINE SULFATE 2 MG/ML SYRINGE IV PUSH ONE (22:15)
[2017-12-02 22:17] LABS: PROTHROMBIN TIME - PATIENT 9.9 SEC (9.8-11.6)
[2017-12-02 22:37] LABS: BICARBONATE 23.6 MEQ/L (21.0-32.0); BLOOD UREA NITROGEN 13 MG/DL (7-18); CALCIUM 8.5 MG/DL (8.5-10.1); CHLORIDE 107 MEQ/L (98-107); CREATININE 1.03 MG/DL (0.60-1.30); GLOMERULAR FILTRATION RATE 85 ML/MIN (>89); GLUCOSE,RANDOM 118 MG/DL (74-106); MAGNESIUM 2.1 MG/DL (1.5-2.5); SODIUM (NA) 140 MEQ/L (136-145)
[2017-12-02 22:40] LABS: TROPONIN I LESS THAN 0.02 NG/ML (0.02-0.05)
[2017-12-02] MEDS ORDERED: HYDROmorphone HCL PF 2 MG/ML VIAL IV PUSH ONE (22:45)
[2017-12-02] MEDS ORDERED: NITROGLYCERIN-D5W 50 MG/250 ML 250 ML IV ONE (22:45)
--- NOTE | 2017-12-02 23:05 | RADRPT ---
EXAM DATE/TIME: 12/02/2017 22:21 [facility] COMPARISON: No previous studies available for comparison. INDICATIONS : Chest pain, shortness of breath. MEDICAL HISTORY : Cardiovascular disease. SURGICAL HISTORY : Coronary artery stent. CABG. ENCOUNTER: Initial ACUITY: 1 day PAIN SCORE: 0/10 LOCATION: Bilateral chest FINDINGS: PA and lateral views of the chest demonstrate the lungs to be symmetrically aerated without evidence of mass, infiltrate or effusion. S/p CABG. The cardiomediastinal contours are unremarkable. Osseous structures are intact. CONCLUSION: No acute disease. Wilber Dudley MD on December 02, 2017 at 23:03 Board Certified Radiologist. This report was verified electronically.
--- NOTE | 2017-12-02 23:18 | PD ---
HPI Chief Complaint: Chest Pain Time Seen by Provider: 21:51 Travel History International Travel<30 days: No Contact w/Intl Traveler<30days: No Traveled to known affect area: No History of Present Illness HPI 32-year-old male presents to the emergency department from local correctional facility for evaluation of chest pain. Patient reportedly has history of congenital heart disease status post atrial septal defect repair and mitral valve replacement. Patient also has history of coronary vessel disease with previous stent placement and myocardial infarction. Patient reports 3 weeks ago he had a cardiac catheterization and reportedly is being evaluated for coronary bypass surgery. Patient was reportedly seen here in the hospital 1 week ago due to chest pain but signed out AMA after an observation stay prior to undergoing cardiac catheterization. This evening patient developed retrosternal chest pain and pressure that was not responsive to sublingual nitroglycerin at the assisted and was transported to the hospital via EMS. Patient was given sublingual nitroglycerin in route to the hospital as well as aspirin without resolution of pain and now complains of severe sharp pain in the chest and presents with sinus tachycardia. Patient does not report shortness of breath or referred neck jaw back shoulder arm pain and no nausea or vomiting. The patient rates his pain as 10/10 intensity and EKG that presents with EMS does not show any evidence of injury pattern. PFSH Past Medical History Narrative Medical CAD stent dyslipidemia myocardial infarction atrial septal defect repair aortic and mitral valve repair anxiety; no tobacco use; nursing notes reviewed Arthritis: No Asthma: Yes Autoimmune Disease: No Anxiety: Yes Depression: Yes Heart Rhythm Problems: Yes Cancer: No Cardiovascular Problems: Yes (MV repair, 2000 asd repaired, AV replaced, 2 stent) High Cholesterol: Yes Chemotherapy: No Chest Pain: Yes Congestive Heart Failure: No COPD: No Cerebrovascular Accident: No Coronary Artery Disease: Yes Diabetes: No Diminished Hearing: No Endocrine: Yes (hypoglycemic) GERD: No Genitourinary: No Hiatal Hernia: No Heparin Induced Thrombocytopen: No Hypertension: Yes Immune Disorder: No Implanted Vascular Access Dvce: No Kidney Stones: No Musculoskeletal: Yes (L hand locked tendon/bunyons) Neurologic: No Psychiatric: No Reproductive: No Respiratory: Yes Migraines: No Myocardial Infarction: Yes (2009, 2010, 10/2017) Radiation Therapy: No Renal Failure: No Seizures: No Sickle Cell Disease: No Sleep Apnea: No Thyroid Disease: No Ulcer: No Influenza Vaccination: No Past Surgical History Abdominal Surgery: No AICD: No Arteriovenous Shunt: No Cardiac Surgery: Yes (STENT X2, ASD REPAIR, MITRAL VALVE REP, AORTIC VALVE PIG TISSUE, LAD STENT) Ear Surgery: No Endocrine Surgery: No Eye Surgery: No Genitourinary Surgery: No Gynecologic Surgery: No Insulin Pump: No Joint Replacement: No Oral Surgery: No Pacemaker: No Thoracic Surgery: No Other Surgery: Yes Social History Alcohol Use: No Tobacco Use: No Substance Use: No Allergies-Medications (Allergen,Severity, Reaction): Coded Allergies: Iodine and Iodide Containing Produc (Verified Allergy, Severe, 11/21/17) "throat swelling" egg (Unverified Allergy, Severe, THRAOT SWELLS, 11/20/17) ketorolac (Unverified Allergy, Severe, THROAT SWELLS, 11/20/17) lithium (Unverified Allergy, Severe, THROAT SWELLS, 11/20/17) ondansetron (Verified Allergy, Severe, 11/21/17) Throat swelling tramadol (Unverified Allergy, Severe, THROAT SWELLS, 11/20/17) Reported Meds & Prescriptions Reported Meds & Active Scripts Active Reported Nitroglycerin SL (Nitroglycerin) 0.4 Mg Subl 0.4 Mg SL DIRECTED PRN ONE TABLET UNDER THE TONGUE NEEDED FOR CHEST PAIN, MAY REPEAT EVERY FIVE MINUTES FOR A TOTAL OF 3 DOSES OR CALL 911 IF NO RELIEF Ativan (Lorazepam) 1 Mg Tab 1 Mg PO Q8H PRN Isosorbide Dinitrate 10 Mg Tab 10 Mg PO BID Bupropion HCl 100 Mg Tab 100 Mg PO BID Atenolol 25 Mg Tab 25 Mg PO DAILY Aspirin 81 Mg Chew 81 Mg CHEW ONCE Proventil Hfa 6.7 GM Inh (Albuterol Sulfate) 90 Mcg/Act Aer 2 Puff INH Q4-6H PRN Atorvastatin (Atorvastatin Calcium) 10 Mg Tab 10 Mg PO DAILY Clonidine ER 12 HR (Clonidine HCl) 0.1 Mg Tab 0.3 Mg PO DAILY Protonix (Pantoprazole Sodium) 40 Mg Tab 40 Mg PO DAILY Plavix (Clopidogrel Bisulfate) 75 Mg Tab 75 Mg PO DAILY Review of Systems Except as stated in HPI: all other systems reviewed are Neg Physical Exam Narrative GENERAL: Well-developed well-nourished male in mild distress with increased respiratory rate and shaking consistent with chill/evaporative cooling with noted piloerection SKIN: Warm and dry. HEAD: Normocephalic. EYES: No scleral icterus. No injection or drainage. NECK: Supple, trachea midline. No JVD or lymphadenopathy. CARDIOVASCULAR: Increased regular rate and rhythm without murmurs, gallops, or rubs. RESPIRATORY: Breath sounds equal bilaterally. No accessory muscle use. GASTROINTESTINAL: Abdomen soft, non-tender, nondistended. MUSCULOSKELETAL: No cyanosis, or edema. Radial and dorsalis pedis pulses 2+ to palpation bilaterally. BACK: Nontender without obvious deformity. No CVA tenderness. Data Data Last Documented VS Vital Signs Date Time Temp Pulse Resp B/P (MAP) Pulse Ox O2 Delivery O2 Flow Rate FiO2 12/02/17 22:55 88 101/63 12/02/17 22:01 96 Nasal Cannula 2.00 12/02/17 21:50 28 Orders Orders Electrocardiogram (12/02/17 21:51) Basic Metabolic Panel (Bmp) (12/02/17 21:51) B-Type Natriuretic Peptide (12/02/17 21:51) Ckmb (Isoenzyme) Profile (12/02/17 21:51) Complete Blood Count With Diff (12/02/17 21:51) Magnesium (Mg) (12/02/17 21:51) Prothrombin Time / Inr (Pt) (12/02/17 21:51) Act Partial Throm Time (Ptt) (12/02/17 21:51) Troponin I (12/02/17 21:51) Ecg Monitoring (12/02/17 21:51) Bilateral Bp Monitoring (12/02/17 21:51) Iv Access Insert/Monitor (12/02/17 21:51) Oximetry (12/02/17 21:51) Oxygen Administration (12/02/17 21:51) Sodium Chloride 0.9% Flush (Ns Flush) (12/02/17 22:00) Chest, Pa & Lat (12/02/17 21:51) Sodium Chlor 0.9% 1000 Ml Inj (Ns 1000 M (12/02/17 22:00) Nitroglycerin 2% Oint (Nitroglycerin 2% (12/02/17 22:15) Morphine Inj (Morphine Inj) (12/02/17 22:15) Metoclopramide Inj (Reglan Inj) (12/02/17 22:15) CKMB (12/02/17 22:04) CKMB% (12/02/17 22:04) Hydromorphone Pf Inj (Dilaudid Pf Inj) (12/02/17 22:45) Nitroglycerin-D5w 50 Mg/250 Ml (Nitrogly (12/02/17 22:45) Labs Laboratory Tests Test 12/02/17 22:04 White Blood Count 10.9 TH/MM3 Red Blood Count 4.55 MIL/MM3 Hemoglobin 14.7 GM/DL Hematocrit 41.7 % Mean Corpuscular Volume 91.8 FL Mean Corpuscular Hemoglobin 32.2 PG Mean Corpuscular Hemoglobin Concent 35.1 % Red Cell Distribution Width 12.6 % Platelet Count 233 TH/MM3 Mean Platelet Volume 10.1 FL Neutrophils (%) (Auto) 48.6 % Lymphocytes (%) (Auto) 30.5 % Monocytes (%) (Auto) 7.6 % Eosinophils (%) (Auto) 10.2 % Basophils (%) (Auto) 3.1 % Neutrophils # (Auto) 5.3 TH/MM3 Lymphocytes # (Auto) 3.3 TH/MM3 Monocytes # (Auto) 0.8 TH/MM3 Eosinophils # (Auto) 1.1 TH/MM3 Basophils # (Auto) 0.3 TH/MM3 CBC Comment DIFF FINAL Differential Comment Prothrombin Time 9.9 SEC Prothromb Time International Ratio 1.0 RATIO Activated Partial Thromboplast Time 26.1 SEC Blood Urea Nitrogen 13 MG/DL Creatinine 1.03 MG/DL Random Glucose 118 MG/DL Calcium Level 8.5 MG/DL Magnesium Level 2.1 MG/DL Sodium Level 140 MEQ/L Potassium Level 4.0 MEQ/L Chloride Level 107 MEQ/L Carbon Dioxide Level 23.6 MEQ/L Anion Gap 9 MEQ/L Estimat Glomerular Filtration Rate 85 ML/MIN Total Creatine Kinase 135 U/L Creatine Kinase MB 0.8 NG/ML Troponin I LESS THAN 0.02 NG/ML B-Type Natriuretic Peptide LESS THAN 2 PG/ML MDM Medical Decision Making Medical Screen Exam Complete: Yes Emergency Medical Condition: Yes Medical Record Reviewed: Yes Interpretation(s) EKG: Sinus tachycardia rate [address] elevation or injury pattern noted however significant baseline artifact is present Differential Diagnosis Chest pain, atypical chest pain, ACS, [place], aortic dissection, pneumothorax, PE Narrative Course Patient placed on monitor tech with continuous pulse oximetry IV access obtained specimens collections of resulting 1 inch Nitropaste applied to the chest wall and morphine sulfate 3 mg IV administered along with Reglan 10 mg IV Patient reports no improvement of pain after nitroglycerin paste and morphine sulfate therefore patient administered Dilaudid 1 mg IV and Nitropaste removed and nitroglycerin infusion initiated. Cardiac enzymes are found to be in normal range Patient will be admitted to medical service. Physician Communication Physician Communication call placed to [facility] Diagnosis Primary Impression: Chest pain Admitting Information Admitting Physician Requests: Admit Doreen Haas MD Dec 02, 2017 23:18
[2017-12-03] VITALS (19 sets, daily range): BP systolic 84–117; BP diastolic 54–68; PULSE 46–78; RESP 14–18; TEMP 97.5–98.7; O2SAT 97–99
[2017-12-03] MEDS ORDERED: NITROGLYCERIN 0.4 MG SL 25 TABS/BTL SL PRN (00:15)
[2017-12-03] MEDS ORDERED: SODIUM CHLORIDE 0.9% FLUSH 10 ML FLUSH IV FLUSH PRN (00:15)
--- NOTE | 2017-12-03 01:55 | HHI.HP ---
HPI Service [facility] Primary Care Physician [facility] Admission Diagnosis chest pain Diagnoses: Travel History International Travel<30 Days: No Contact w/Intl Traveler <30 Da: No Traveled to Known Affected Are: No History of Present Illness 5-year-old male with past medical history significant for CAD status post UT 3 , hyperlipidemia and asthma presents to the emergency department for evaluation of chest pain. The patient reports that his chest pain started approximately 1 hour prior to his arrival in the emergency department. He states that it was sudden onset, substernal pressure that radiated to his back and down his left arm. The patient has a significant cardiac history including ASD repair in childhood and is status post MVR and AVR. He reports 3 weeks ago he had a stent placed in his LAD at [facility] and he is scheduled for a CABG at [facility]. The patient is a somewhat poor historian stating that he cannot remember the exact institutions where he had many of his procedures done. The patient was admitted to [facility] [place] on 11/21/17 for similar symptoms and was scheduled to have a Lexiscan and echo however left AMA prior to these tests being performed. Patient denies any shortness of breath. No abdominal pain. No nausea/vomiting/diarrhea. No weakness. No lateralizing signs/symptoms. Review of Systems Except as stated in HPI: all other systems reviewed are Neg Past Family Social History Past Medical History Coronary artery disease status post UT 3 Asthma Hyperlipidemia Past Surgical History ASD repair MBR AVR Cardiac catheterization with stent placement 2, most recently 3 weeks ago had a stent placed in the LAD at [facility] per patient report Reported Medications Reported Meds & Active Scripts Active Reported Nitroglycerin SL (Nitroglycerin) 0.4 Mg Subl 0.4 Mg SL DIRECTED PRN ONE TABLET UNDER THE TONGUE NEEDED FOR CHEST PAIN, MAY REPEAT EVERY FIVE MINUTES FOR A TOTAL OF 3 DOSES OR CALL 911 IF NO RELIEF Ativan (Lorazepam) 1 Mg Tab 1 Mg PO Q8H PRN Isosorbide Dinitrate 10 Mg Tab 10 Mg PO BID Bupropion HCl 100 Mg Tab 100 Mg PO BID Atenolol 25 Mg Tab 25 Mg PO DAILY Aspirin 81 Mg Chew 81 Mg CHEW ONCE Proventil Hfa 6.7 GM Inh (Albuterol Sulfate) 90 Mcg/Act Aer 2 Puff INH Q4-6H PRN Atorvastatin (Atorvastatin Calcium) 10 Mg Tab 10 Mg PO DAILY Clonidine ER 12 HR (Clonidine HCl) 0.1 Mg Tab 0.3 Mg PO DAILY Protonix (Pantoprazole Sodium) 40 Mg Tab 40 Mg PO DAILY Plavix (Clopidogrel Bisulfate) 75 Mg Tab 75 Mg PO DAILY Allergies: Coded Allergies: Iodine and Iodide Containing Produc (Verified Allergy, Severe, 11/21/17) "throat swelling" egg (Unverified Allergy, Severe, THRAOT SWELLS, 11/20/17) ketorolac (Unverified Allergy, Severe, THROAT SWELLS, 11/20/17) lithium (Unverified Allergy, Severe, THROAT SWELLS, 11/20/17) ondansetron (Verified Allergy, Severe, 11/21/17) Throat swelling tramadol (Unverified Allergy, Severe, THROAT SWELLS, 11/20/17) Family History Father with CAD Social History A urine for alcohol, tobacco and illicit drugs. Physical Exam Vital Signs Vital Signs Date Time Temp Pulse Resp B/P (MAP) Pulse Ox O2 Delivery O2 Flow Rate FiO2 12/02/17 22:55 88 101/63 12/02/17 22:01 96 Nasal Cannula 2.00 12/02/17 21:53 94 12/02/17 21:50 110 28 130/71 (90) 96 Physical Exam GENERAL: Thin, male sitting up in bed SKIN: No rashes, ecchymoses or lesions. Cool and dry. HEAD: Atraumatic. Normocephalic. No temporal or scalp tenderness. EYES: Pupils equal round and reactive. Extraocular motions intact. No scleral icterus. No injection or drainage. ENT: Nose without bleeding, purulent drainage or septal hematoma. Throat without erythema, tonsillar hypertrophy or exudate. Uvula midline. Airway patent. NECK: Trachea midline. No JVD or lymphadenopathy. Supple, nontender, no meningeal signs. CARDIOVASCULAR: Regular rate and rhythm without murmurs, gallops, or rubs. RESPIRATORY: Bilateral expiratory wheezes throughout. GASTROINTESTINAL: Abdomen soft, non-tender, nondistended. No hepato-splenomegaly , or palpable masses. No guarding. MUSCULOSKELETAL: Extremities without clubbing, cyanosis, or edema. No joint tenderness, effusion, or edema noted. No calf tenderness. NEUROLOGICAL: Awake and alert. Cranial nerves II through XII intact. Motor and sensory grossly within normal limits. Normal speech. Laboratory Laboratory Tests Test 12/02/17 22:04 White Blood Count 10.9 Red Blood Count 4.55 Hemoglobin 14.7 Hematocrit 41.7 Mean Corpuscular Volume 91.8 Mean Corpuscular Hemoglobin 32.2 Mean Corpuscular Hemoglobin Concent 35.1 Red Cell Distribution Width 12.6 Platelet Count 233 Mean Platelet Volume 10.1 Neutrophils (%) (Auto) 48.6 Lymphocytes (%) (Auto) 30.5 Monocytes (%) (Auto) 7.6 Eosinophils (%) (Auto) 10.2 Basophils (%) (Auto) 3.1 Neutrophils # (Auto) 5.3 Lymphocytes # (Auto) 3.3 Monocytes # (Auto) 0.8 Eosinophils # (Auto) 1.1 Basophils # (Auto) 0.3 CBC Comment DIFF FINAL Differential Comment Prothrombin Time 9.9 Prothromb Time International Ratio 1.0 Activated Partial Thromboplast Time 26.1 Blood Urea Nitrogen 13 Creatinine 1.03 Random Glucose 118 Calcium Level 8.5 Magnesium Level 2.1 Sodium Level 140 Potassium Level 4.0 Chloride Level 107 Carbon Dioxide Level 23.6 Anion Gap 9 Estimat Glomerular Filtration Rate 85 Total Creatine Kinase 135 Creatine Kinase MB 0.8 Troponin I LESS THAN 0.02 B-Type Natriuretic Peptide LESS THAN 2 Result Diagram: 12/02/17220312/02/172203 Caprini VTE Risk Assessment Caprini VTE Risk Assessment: No/Low Risk (score <= 1) Caprini Risk Assessment Model Point Value = 1 Point Value = 2 Point Value = 3 Point Value = 5 Age 41-60 Minor surgery BMI > 25 kg/m2 Swollen legs Varicose veins or History of unexplained or recurrent spontaneous Oral contraceptives or hormone replacement Sepsis (< 1 month) Serious lung disease, including pneumonia (< 1 month) Abnormal pulmonary function Acute myocardial infarction Congestive heart failure (< 1 month) History of inflammatory bowel disease Medical patient at bed rest Age 61-74 Arthroscopic surgery Major open surgery (> 45 min) Laparoscopic surgery (> 45 min) Malignancy Confined to bed (> 72 hours) Immobilizing plaster cast Central venous access Age >= 75 History of VTE Family history of VTE Factor V Leiden Prothrombin [id number] Lupus anticoagulant Anticardiolipin antibodies Elevated serum homocysteine Heparin-induced thrombocytopenia Other congenital or acquired thrombophilia Stroke (< 1 month) Elective arthroplasty Hip, pelvis, or leg fracture Acute spinal cord injury (< 1 month) Prophylaxis Regimen Total Risk Factor Score Risk Level Prophylaxis Regimen 0-1 Low Early ambulation 2 Moderate Order ONE of the following: *Sequential Compression Device (SCD) *Heparin 5000 units SQ BID 3-4 Higher Order ONE of the following medications: *Heparin 5000 units SQ TID *Enoxaparin/Lovenox 40 mg SQ daily (WT < 150 kg, CrCl > 30 mL/min) *Enoxaparin/Lovenox 30 mg SQ daily (WT < 150 kg, CrCl > 10-29 mL/min) *Enoxaparin/Lovenox 30 mg SQ BID (WT < 150 kg, CrCl > 30 mL/min) AND/OR *Sequential Compression Device (SCD) 5 or more Highest Order ONE of the following medications: *Heparin 5000 units SQ TID (Preferred with Epidurals) *Enoxaparin/Lovenox 40 mg SQ daily (WT < 150 kg, CrCl > 30 mL/min) *Enoxaparin/Lovenox 30 mg SQ daily (WT < 150 kg, CrCl > 10-29 mL/min) *Enoxaparin/Lovenox 30 mg SQ BID (WT < 150 kg, CrCl > 30 mL/min) AND *Sequential Compression Device (SCD) Assessment and Plan Assessment and Plan Assessment/plan: 1. Chest pain EKG shows sinus tachycardia without ST segment elevations or depressions, personally reviewed Initial troponin negative Cardiology consulted, appreciate assistance Medical records requested from [facility] and [facility] Nitro drip Morphine Serial troponins/EKGs 2. Asthma Albuterol nebulizers when necessary 3. CAD Continue holding Plavix/aspirin 4. Hypertension/hyperlipidemia Continue home medications FEN NPO Electrolytes: Monitor and replete when necessary NS at 70 cc/hr Mandy Loja MD Dec 03, 2017 01:55
[2017-12-03] MEDS: MORPHINE SULFATE 4 MG/ML INJ IV PUSH PRN ×6 (02:12→21:31)
[2017-12-03] MEDS ORDERED: ASPIRIN 81 MG CHEW TAB CHEW ONE (02:30)
[2017-12-03] MEDS ORDERED: RESP: ALBUTEROL 2.5 MG/3 ML NEB (PRN) INH (02:30)
[2017-12-03] MEDS: SODIUM CHLOR 0.9% 1000 ML INJ 1,000 ML IV SCH ×2 (03:19→17:00)
[2017-12-03] MEDS ORDERED: NITROGLYCERIN-D5W 50 MG/250 ML 250 ML IV PRN (04:45)
[2017-12-03] MEDS: LORazepam 1 MG TAB PO PRN ×3 (04:59→21:31)
[2017-12-03] MEDS: HEPARIN SODIUM - SQ 10,000 UNITS/ML VIAL SQ SCH ×3 (05:00→21:29)
[2017-12-03 05:56] LABS: TROPONIN I LESS THAN 0.02 NG/ML (0.02-0.05)
[2017-12-03] MEDS: buPROPion HCL 100 MG TAB PO SCH ×2 (09:00→21:29)
[2017-12-03] MEDS: ATENOLOL 25 MG TAB PO SCH (09:00)
[2017-12-03] MEDS: CLOPIDOGREL 75 MG TAB PO SCH (09:01)
[2017-12-03] MEDS: PANTOPRAZOLE SOD 40 MG DELAYED RELEASE TAB PO SCH (09:01)
[2017-12-03] MEDS: ATORVASTATIN 10 MG TAB PO SCH (09:01)
[2017-12-03] MEDS: SODIUM CHLORIDE 0.9% FLUSH 10 ML FLUSH IV FLUSH SCH ×2 (09:01→21:29)
[2017-12-03] MEDS: cloNIDine HCL 0.3 MG TAB PO SCH (09:47)
[2017-12-03 12:30] LABS: TROPONIN I LESS THAN 0.02 NG/ML (0.02-0.05)
[2017-12-03] MEDS: PROMETHAZINE INJ 25 MG/ML VIAL IM PRN (13:42)
--- NOTE | 2017-12-03 21:21 | EKG ---
Date Performed: 12/02/2017 Time Performed: 21:58:58 PTAGE: 32 years EKG: SINUS TACHYCARDIA WITH SHORT CA INTERVAL BORDERLINE LEFT AXIS DEVIATION ABNORMAL RHYTHM ECG NO PREVIOUS TRACING DOCTOR: Jair Israel Interpretating Date/Time 12/03/2017 21:20:31
[2017-12-04] VITALS (16 sets, daily range): BP systolic 98–120; BP diastolic 53–83; PULSE 50–93; RESP 16–20; TEMP 97.7–98.7; O2SAT 98–100
--- NOTE | 2017-12-04 00:23 | MB ---
cc: Jatinder Ayon DO DATE: 12/03/2017 REASON FOR CONSULTATION: Chest pain. HISTORY OF PRESENT ILLNESS: Jair Jones is a 32-year-old male who presents to the emergency room due to chest pain. The patient is currently incarcerated at [facility]. He was previously here 10 days ago with similar type chest pain. He was seen by cardiology and recommended stress testing, but left against medical advice. He states that since then, the chest pain has been constant. It seems to radiate down his left side, especially his arm. Overall, he is a poor historian of his past. He states that there is some confusion, but apparently he was at [facility] in [place] and had stenting of his LAD and he had scheduled for open heart surgery, not for CABG, but for repair of his ASD. Apparently he had ASD repair with an Amplatzer and there is some concern about its integrity, but the patient is unsure. In seeing him, he is currently hemodynamically stable. PAST MEDICAL HISTORY: 1. Coronary artery disease with a history of myocardial infarction x3. 2. Asthma. 3. Hyperlipidemia. 4. Congenital heart disease of unknown type; he believes he had an ASD repair as a child, as well as an MVR and an AVR. PAST SURGICAL HISTORY: 1. ASD repair with what is believed to be an Amplatzer device. 2. MVR which the patient is unsure if this was a repair or replacement. 3. AVR with what is believed to be a bioprosthetic valve. 4. Coronary artery disease with LAD stenting believed to be at [facility]. ALLERGIES: 1. IODINE. 2. EGG. 3. KETOROLAC. 4. LITHIUM. 5. ZOFRAN. 6. TRAMADOL. MEDICATIONS: 1. Albuterol 2 puffs every 4-6 hours as needed. 2. Plavix 75 mg daily. 3. Lipitor 10 mg daily. 4. Clonidine 0.3 mg daily. 5. Isosorbide dinitrate 10 mg b.i.d. 6. Nitro sublingual as needed. 7. Atenolol 25 mg daily. 8. Aspirin 81 mg daily. 9. ____ 100 mg b.i.d. 10. Ativan 1 mg every 8 hours as needed for anxiety. 11. Protonix 40 mg daily. FAMILY HISTORY: Denies sudden cardiac within the family. SOCIAL HISTORY: Denies alcohol, tobacco or drug abuse. REVIEW OF SYSTEMS: Fourteen systems were reviewed including osteopathic. Pertinent positives and negatives above, otherwise negative. PHYSICAL EXAMINATION: VITAL SIGNS: Temperature 97.5, heart rate 56, blood pressure 112/68, respirations 16, pulse oximetry 99% on 2 liters. GENERAL: The patient appears well, in no acute distress, alert, awake and oriented x3. HEENT: Extraocular muscles intact. Mucous membranes moist. NECK: Supple. No JVD at 45 degrees. No carotid bruits heard bilaterally. Carotid upstroke is brisk in nature. HEART: Regular rate and rhythm. Positive first and second heart sounds with no noted murmurs, gallops or rubs. LUNGS: Clear to auscultation bilaterally. No wheezes, rales or rhonchi. ABDOMEN: Soft, nontender, nondistended. No organomegaly noted. EXTREMITIES: Show no clubbing, cyanosis or edema. Femoral and distal pulses are intact bilaterally. NEUROLOGIC: No focal deficits. SKIN: Warm, dry and intact. OSTEOPATHIC: No kyphoscoliosis, lordosis or paraspinal tender points. LABORATORY DATA: Hemoglobin 14.7, hematocrit 41.7, platelets 233. Potassium 4.0, BUN 13, creatinine 1.03. Troponin negative x3. Electrocardiogram (12/02/2017 at 2158): Sinus tachycardia, borderline left axis deviation. IMPRESSIONS: 1. Chest pain, atypical for coronary insufficiency. 2. Asthma. 3. Coronary artery disease. 4. Hypertension. 5. Hyperlipidemia. 6. Congenital heart disease with atrial septal defect repair, as well as what the patient believes to be a mitral valve replacement and aortic valve replacement. RECOMMENDATIONS: 1. Mr. Jones presented with chest pain which was atypical for coronary insufficiency. Troponins have been negative, and I believe that if he had a problem with a stent, this would show. 2. We will plan on undergoing a pharmacologic nuclear stress test in the morning. He will be n.p.o. after midnight. 3. We will plan on repeating his echo, as his last echo states that it was difficult to determine most of the structures. In reviewing his previous echo, his mitral valve appears normal, without a repair ring, and his aortic valve appears relatively normal. I do not believe that he had an AVR, although it may be a strutless aortic valve. 4. We will attempt to obtain records from [facility]. 5. Further recommendations will be made based on the hospital course. Thank you for allowing me to see Jair Jones. If there are any questions, please do not hesitate to call. DO TERE Lewis/FREDI , 11:27 PM , 12:22 AM
[2017-12-04] MEDS: MORPHINE SULFATE 4 MG/ML INJ IV PUSH PRN ×6 (00:30→21:04)
[2017-12-04] MEDS: SODIUM CHLOR 0.9% 1000 ML INJ 1,000 ML IV SCH ×2 (05:08→17:23)
[2017-12-04] MEDS: HEPARIN SODIUM - SQ 10,000 UNITS/ML VIAL SQ SCH ×3 (05:10→21:05)
[2017-12-04 07:36] LABS: AUTOMATED NEUTROPHIL # 6.3 TH/MM3 (1.8-7.7); BASOPHIL # 0.1 TH/MM3 (0-0.2); BASOPHIL % 0.9 % (0.0-2.0); EOSINOPHIL # 0.8 TH/MM3 (0-0.4); EOSINOPHIL % 7.3 % (0.0-4.0); HEMATOCRIT 41.7 % (39.0-51.0); HEMOGLOBIN 14.6 GM/DL (13.0-17.0); LYMPH % 25.5 % (9.0-44.0); LYMPHOCYTE # 2.7 TH/MM3 (1.0-4.8); MEAN CELL VOLUME 93.7 FL (80.0-100.0); MEAN CORPUSCULAR HEMOGLOBIN 32.8 PG (27.0-34.0); MEAN PLATELET VOLUME 10.2 FL (7.0-11.0); MONO % 6.9 % (0.0-8.0); MONOCYTE # 0.7 TH/MM3 (0-0.9); NEUT % 59.4 % (16.0-70.0); PLATELET COUNT 188 TH/MM3 (150-450); RED BLOOD COUNT 4.45 MIL/MM3 (4.50-5.90); WHITE BLOOD COUNT 10.7 TH/MM3 (4.0-11.0)
[2017-12-04 08:00] LABS: BICARBONATE 27.7 MEQ/L (21.0-32.0); CALCIUM 8.6 MG/DL (8.5-10.1); CREATININE 0.88 MG/DL (0.60-1.30)
[2017-12-04] MEDS: PANTOPRAZOLE SOD 40 MG DELAYED RELEASE TAB PO SCH (08:45)
[2017-12-04] MEDS: LORazepam 1 MG TAB PO PRN ×2 (08:45→22:01)
[2017-12-04] MEDS: cloNIDine HCL 0.3 MG TAB PO SCH (08:45)
[2017-12-04] MEDS: ATENOLOL 25 MG TAB PO SCH (08:45)
[2017-12-04] MEDS: buPROPion HCL 100 MG TAB PO SCH ×2 (08:45→21:03)
[2017-12-04] MEDS: CLOPIDOGREL 75 MG TAB PO SCH (08:45)
[2017-12-04] MEDS: PROMETHAZINE INJ 25 MG/ML VIAL IM PRN (08:46)
[2017-12-04] MEDS: ATORVASTATIN 10 MG TAB PO SCH (08:46)
[2017-12-04] MEDS: SODIUM CHLORIDE 0.9% FLUSH 10 ML FLUSH IV FLUSH SCH ×2 (08:46→21:04)
[2017-12-04] MEDS ORDERED: REGADENOSON INJ 0.4 MG/5 ML SYR ONE (11:43)
--- NOTE | 2017-12-04 12:52 | ECHRPT ---
Indication: ASD repair CONCLUSIONS The left ventricular systolic function is normal with an estimated ejection fraction in the range of 60-65%. Wall thickness is normal. Normal left ventricular size. A possible atrial level shunt is demonstrated by color flow Doppler interrogation, clinical correlat ion recommended. Trace mitral valve regurgitation. Trace aortic valve regurgitation. There is mild tricuspid valve regurgitation. The estimated pulmonary arterial pressure is 31 mmHg. Trivial pulmonary valve regurgitation. BP: 120 / 80 HR: 58 Rhythm: Sinus MEASUREMENTS (Male / Female) Normal Values Technical Quality:Fair 2D ECHO LV Diastolic Diameter PLAX 5.6 cm 4.2 - 5.9 / 3.9 - 5.3 cm LV Systolic Diameter PLAX 3.8 cm IVS Diastolic Thickness 0.6 cm 0.6 - 1.0 / 0.6 - 0.9 cm LVPW Diastolic Thickness 0.6 cm 0.6 - 1.0 / 0.6 - 0.9 cm LV Relative Wall Thickness 0.2 RV Internal Dim ED PLAX 3.5 cm LVOT Diameter 2.0 cm LA Systolic Diameter LX 3.4 cm 3.0 - 4.0 / 2.7 - 3.8 cm LA Volume Index 25.0 cm/m 16 - 28 cm/m M-MODE Aortic Root Diameter MM 2.6 cm LA Systolic Diameter MM 3.0 cm LA Ao Ratio MM 1.2 AV Cusp Separation MM 2.2 cm DOPPLER AV Peak Velocity 141.0 cm/s AV Peak Gradient 8.0 mmHg LVOT Peak Velocity 114.0 cm/s LVOT Peak Gradient 5.2 mmHg LVOT Velocity Time Integral 23.3 cm LVOT Cardiac Index 2274.3 cm/minm AV Area Cont Eq pk 2.5 cm MV Area PHT 3.3 cm Mitral E Point Velocity 79.7 cm/s Mitral A Point Velocity 60.6 cm/s Mitral E to A Ratio 1.3 LV E' Lateral Velocity 19.1 cm/s Mitral E to LV E' Lateral Ratio 4.2 LV E' Septal Velocity 14.5 cm/s Mitral E to LV E' Septal Ratio 5.5 TR Peak Velocity 229.0 cm/s TR Peak Gradient 21.0 mmHg Right Atrial Pressure 10.0 mmHg Pulmonary Artery Systolic Pressu 31.0 mmHg Right Ventricular Systolic Press 31.0 mmHg RVOT Peak Velocity 65.0 cm/s QpQs Shunt Ratio 1.3 FINDINGS LEFT VENTRICLE The left ventricular systolic function is normal with an estimated ejection fraction in the range of 60-65%. Wall thickness is normal. Normal left ventricular size. RIGHT VENTRICLE Normal right ventricular size and systolic function. LEFT ATRIUM The left atrial size is normal. RIGHT ATRIUM The right atrial size is normal. ATRIAL SEPTUM A possible atrial level shunt is demonstrated by color flow Doppler interrogation, clinical correlat ion recommended. AORTA The aortic root and proximal ascending aorta are normal in size on limited imaging. MITRAL VALVE Structurally normal mitral valve. Trace mitral valve regurgitation. AORTIC VALVE Trileaflet aortic valve. Trace aortic valve regurgitation. TRICUSPID VALVE Structurally normal tricuspid valve. There is mild tricuspid valve regurgitation. The estimated pulmonary arterial pressure is 31 mmHg. PULMONARY VALVE Trivial pulmonary valve regurgitation. VESSELS The inferior vena cava is normal in size. PERICARDIUM No pericardial effusion. Omar Sommers MD, FACC (Electronically Signed) Final Date:04 December 2017 12:51
--- NOTE | 2017-12-04 15:56 | HHI.PR ---
Subjective Remarks no complains of chest pain or shortness of breath complains of headaches from the NTG drip- now currently off Objective Vitals Vital Signs Date Time Temp Pulse Resp B/P (MAP) Pulse Ox O2 Delivery O2 Flow Rate FiO2 12/04/17 13:15 53 16 118/69 (85) 100 12/04/17 08:45 16 12/04/17 07:00 77 12/04/17 07:00 93 20 117/83 (94) 100 12/04/17 06:00 56 12/04/17 05:48 58 12/04/17 04:00 51 12/04/17 04:00 97.7 51 16 120/80 (93) 98 12/04/17 01:00 50 12/04/17 00:00 97.7 50 16 98/56 (70) 98 12/04/17 00:00 54 12/03/17 22:00 56 12/03/17 21:00 56 12/03/17 20:00 58 12/03/17 20:00 98.7 53 16 84/54 (64) 99 12/03/17 20:00 53 84/54 12/03/17 19:00 69 12/03/17 18:00 48 12/03/17 17:00 98.6 46 16 95/54 (68) 98 12/03/17 17:00 46 I/O 12/03/17 12/03/17 12/03/17 12/04/17 12/04/17 12/04/17 07:00 15:00 23:00 07:00 15:00 23:00 Intake Total 240 ml 767 ml Output Total 400 ml 1000 ml 1100 ml Balance -160 ml -233 ml -1100 ml Intake Oral 240 ml 0 ml IV Total 767 ml Output Urine Total 400 ml 1000 ml 1100 ml # Bowel Movements 0 Result Diagram: 12/04/1771912/04/17719 Imaging Last Impressions Chest X-Ray 12/02/172150 Signed Impressions: Service Date/Time: Saturday, December 02, 2017 22:21 - CONCLUSION: No acute disease. Wilber Dudley MD Objective Remarks awake and alert, oriented x 3 anicteric no rales regular rhythm abdomen soft, nontender extremities no edema A/P Assessment and Plan 1. Atyoical Chest pain History of CAD EKG shows sinus tachycardia without ST segment elevations or depressions troponins not significiant Cardiology consulted, appreciate assistance [facility]- DC change to po Imdur 15 mg daily Morphine prn Asthma Albuterol nebulizers when necessary rstart her on albuterol MDi and q Leyla Hypertension/hyperlipidemia Continue home medications FEN Electrolytes: Monitor and replete when necessary NS at 70 cc/hr Iván Floyd MD Dec 04, 2017 15:56
[2017-12-04] MEDS ORDERED: NITROGLYCERIN 0.4 MG SL 25 TABS/BTL SL PRN (16:15)
[2017-12-04] MEDS ORDERED: ALBUTEROL SULFATE 90 MCG/ACT HFA 8 GM INHALER INH PRN (16:45)
--- NOTE | 2017-12-04 16:47 | RADRPT ---
EXAM DATE/TIME: 12/04/2017 11:10 [place] COMPARISON: No previous studies available for comparison. INDICATIONS : Left chest pain radiating to left side and arm. Abnormal EKG. DOSE: 27.2 mCi Tc99m Myoview at stress. 8.4 mCi Tc99m Myoview at rest. 0.4 mg Lexiscan STRESS SYMPTOMS: Nausea and chest pain. EJECTION FRACTION: 53% MEDICAL HISTORY : Myocardial infarction. Hypercholesterolemia. Asthma. SURGICAL HISTORY : Coronary artery stent. Mitral and aortic valve replacement. ENCOUNTER: Initial ACUITY: 1 week PAIN SCALE: 6/10 LOCATION: Left chest TECHNIQUE: The patient underwent pharmacologic stress with infusion of prescribed dose. Continuous ECG tracing was monitored during stress. Gated SPECT imaging was performed after stress and conventional SPECT i maging was performed at rest. The examination was performed on a SPECT/CT scanner, both attenuation and non-corrected datasets were reviewed. FINDINGS: DISTRIBUTION: The maximum perfused segment at stress is in the anterolateral wall. PERFUSION STUDY: The pattern of perfusion at stress shows a significant amount of activity within the bowel, especiall y on the rest images. However, no reversibility to suggest ischemia. Relative fixed diminished perfus ion to the apex GATED STUDY: Mild hypokinesis in the inferior wall near the base of the heart. Otherwise, adequate wall motion thr oughout. CONCLUSION: 1. No scintigraphic findings of ischemia. 2. Apical thinning. 3. Mild hypokinesis along the inferior wall of the heart base. Otherwise, preserved wall motion with estimated ejection fraction of 53% RISK CATEGORY: Low (<1% Annual Mortality Rate) Min Beck MD on December 04, 2017 at 16:40 Board Certified Radiologist. This report was verified electronically.
[2017-12-04] MEDS: ALBUTEROL SULFATE 90 MCG/ACT HFA 8 GM INHALER INH SCH (18:10)
--- NOTE | 2017-12-04 18:48 | EKG ---
Date Performed: 12/03/2017 Time Performed: 17:18:12 PTAGE: 32 years EKG: Sinus bradycardia Since the PREVIOUS TRACING , no significant change noted Normal ECG except for rate PREVIOUS TRACIN 12/02/2017 21.58 DOCTOR: Eugenio Tyler Interpretating Date/Time 12/04/2017 18:45:34
[2017-12-04] MEDS: BECLOMETHASONE DIPROPIONATE 80 MCG/ACT 8.7 GM INHALER INH SCH (21:00)
--- NOTE | 2017-12-04 22:34 | PD.CARD.PN ---
Subjective Subjective Remarks Patient was seen earlier today, late entry note No complaints, no chest pain Objective Medications Current Medications Medications (Trade) Dose Ordered Sig/Arabella Route Start Time Stop Time Status Last Admin (NS Flush) 2 ml BID IV FLUSH 12/03/17 09:00 12/04/17 21:04 (NS Flush) 2 ml UNSCH PRN IV FLUSH 12/03/17 00:15 (Heparin Inj) 5,000 units Q8HR SQ 12/03/17 06:00 12/04/17 21:05 (Morphine Inj) 4 mg Q3H PRN IV PUSH 12/03/17 02:00 12/04/17 21:04 (Albuterol Neb) 2.5 mg Q4HR NEB PRN INH 12/03/17 02:30 Sodium Chloride 1,000 ml @ 70 mls/hr [id number] IV 12/03/17 02:30 12/04/17 17:23 (Plavix) 75 mg DAILY PO 12/03/17 09:00 12/04/17 08:45 (Tenormin) 25 mg DAILY PO 12/03/17 09:00 12/04/17 08:45 (Lipitor) 10 mg DAILY PO 12/03/17 09:00 12/04/17 08:46 (Wellbutrin) 100 mg BID PO 12/03/17 09:00 12/04/17 21:03 (Protonix) 40 mg DAILY PO 12/03/17 09:00 12/04/17 08:45 (Catapres) 0.3 mg DAILY PO 12/03/17 09:00 12/04/17 08:45 (Ativan) 1 mg Q8H PRN PO 12/03/17 04:45 12/04/17 22:01 (Phenergan Inj) 25 mg Q6H PRN IM 12/03/17 13:00 12/04/17 08:46 (Nitrostat Sl) 0.4 mg Q5M PRN SL 12/04/17 16:15 (Imdur) 15 mg DAILY@07 PO 12/05/17 07:00 (Proair Hfa Inh) 2 puff Q6HR INH 12/04/17 18:00 12/04/17 18:10 (Qvar 80 Mcg Inh) 1 puff BID INH 12/04/17 21:00 (Proair Hfa Inh) 2 puff Q2H PRN INH 12/04/17 16:45 Vital Signs / I&O Vital Signs Date Time Temp Pulse Resp B/P (MAP) Pulse Ox O2 Delivery O2 Flow Rate FiO2 12/04/17 21:01 98.7 56 16 105/53 (70) 98 12/04/17 18:00 68 12/04/17 17:00 58 12/04/17 16:00 72 12/04/17 16:00 18 12/04/17 15:00 53 12/04/17 15:00 98.3 55 16 100/66 (77) 100 12/04/17 14:00 58 12/04/17 13:15 53 16 118/69 (85) 100 12/04/17 10:00 52 12/04/17 08:00 66 12/04/17 07:00 77 12/04/17 07:00 93 20 117/83 (94) 100 12/04/17 06:00 56 12/04/17 05:48 58 12/04/17 04:00 51 12/04/17 04:00 97.7 51 16 120/80 (93) 98 12/04/17 01:00 50 12/04/17 00:00 97.7 50 16 98/56 (70) 98 12/04/17 00:00 54 I/O 12/03/17 12/03/17 12/03/17 12/04/17 12/04/17 12/04/17 07:00 15:00 23:00 07:00 15:00 23:00 Intake Total 240 ml 767 ml 620 ml Output Total 400 ml 1000 ml 1100 ml 1500 ml Balance -160 ml -233 ml -1100 ml -880 ml Intake Oral 240 ml 0 ml 620 ml IV Total 767 ml Output Urine Total 400 ml 1000 ml 1100 ml 1500 ml # Bowel Movements 0 Physical Exam GENERAL: NAD, AAOx3 SKIN: Warm and dry. HEAD: Atraumatic. Normocephalic. EYES: Pupils equal and round. No scleral icterus. No injection or drainage. ENT: No nasal bleeding or discharge. Mucous membranes pink and moist. NECK: Trachea midline. No JVD. CARDIOVASCULAR: Regular rate and rhythm. RESPIRATORY: No accessory muscle use. Clear to auscultation. Breath sounds equal bilaterally. GASTROINTESTINAL: Abdomen soft, non-tender, nondistended. Hepatic and splenic margins not palpable. MUSCULOSKELETAL: Extremities without clubbing, cyanosis, or edema. No obvious deformities. NEUROLOGICAL: Awake and alert. No obvious cranial nerve deficits. Motor grossly within normal limits. Five out of 5 muscle strength in the arms and legs. Normal speech. PSYCHIATRIC: Appropriate mood and affect; insight and judgment normal. Laboratory Laboratory Tests Test 12/04/17 07:20 White Blood Count 10.7 TH/MM3 Red Blood Count 4.45 MIL/MM3 Hemoglobin 14.6 GM/DL Hematocrit 41.7 % Mean Corpuscular Volume 93.7 FL Mean Corpuscular Hemoglobin 32.8 PG Mean Corpuscular Hemoglobin Concent 35.0 % Red Cell Distribution Width 13.0 % Platelet Count 188 TH/MM3 Mean Platelet Volume 10.2 FL Neutrophils (%) (Auto) 59.4 % Lymphocytes (%) (Auto) 25.5 % Monocytes (%) (Auto) 6.9 % Eosinophils (%) (Auto) 7.3 % Basophils (%) (Auto) 0.9 % Neutrophils # (Auto) 6.3 TH/MM3 Lymphocytes # (Auto) 2.7 TH/MM3 Monocytes # (Auto) 0.7 TH/MM3 Eosinophils # (Auto) 0.8 TH/MM3 Basophils # (Auto) 0.1 TH/MM3 CBC Comment DIFF FINAL Differential Comment Blood Urea Nitrogen 8 MG/DL Creatinine 0.88 MG/DL Random Glucose 61 MG/DL Calcium Level 8.6 MG/DL Sodium Level 142 MEQ/L Potassium Level 4.0 MEQ/L Chloride Level 108 MEQ/L Carbon Dioxide Level 27.7 MEQ/L Anion Gap 6 MEQ/L Estimat Glomerular Filtration Rate 102 ML/MIN Imaging Last 24 hours Impressions Myocardial Perfusion Scan Nuc Med 12/04/17 0000 Signed Impressions: Service Date/Time: November 11:10 - CONCLUSION: 1. No scintigraphic findings of ischemia. 2. Apical thinning. 3. Mild hypokinesis along the inferior wall of the heart base. Otherwise, preserved wall motion with estimated ejection fraction of 53%% RISK CATEGORY: Low (<1%% Annual Mortality Rate) Min Beck MD Assessment and Plan Problem List: (1) H/O congenital atrial septal defect (ASD) repair ICD Codes: Z87.74 - Personal history of (corrected) congenital malformations of heart and circulatory system (2) Chest pain ICD Codes: R07.9 - Chest pain, unspecified Assessment and Plan 1) Chest pain atypical Stress test negative No further work up 2) Poor historian Said he had AVR/MVR but not noted on echo Echo showing possible shunting of flow across atrial septum 3) Obtain records from [facility] Will make NPO after midnight and consider RIK in the am, would like records from [place] to determine previous work up Jatinder Ayon DO Dec 04, 2017 22:34
[2017-12-05] VITALS (11 sets, daily range): BP systolic 108–121; BP diastolic 62–74; PULSE 55–82; RESP 16; TEMP 98–98.1; O2SAT 99–100
[2017-12-05] MEDS: ALBUTEROL SULFATE 90 MCG/ACT HFA 8 GM INHALER INH SCH ×3 (00:33→12:00)
[2017-12-05] MEDS: MORPHINE SULFATE 4 MG/ML INJ IV PUSH PRN ×5 (00:33→13:36)
[2017-12-05] MEDS: HEPARIN SODIUM - SQ 10,000 UNITS/ML VIAL SQ SCH (06:00)
[2017-12-05] MEDS ORDERED: ISOSORBIDE MONONITRATE 30 MG CR TAB (IMDUR) PO SCH (07:00)
[2017-12-05] MEDS: SODIUM CHLOR 0.9% 1000 ML INJ 1,000 ML IV SCH (07:42)
[2017-12-05] MEDS: BECLOMETHASONE DIPROPIONATE 80 MCG/ACT 8.7 GM INHALER INH SCH (09:00)
[2017-12-05] MEDS: SODIUM CHLORIDE 0.9% FLUSH 10 ML FLUSH IV FLUSH SCH (09:00)
[2017-12-05] MEDS: buPROPion HCL 100 MG TAB PO SCH (10:16)
[2017-12-05] MEDS: ATENOLOL 25 MG TAB PO SCH (10:16)
[2017-12-05] MEDS: CLOPIDOGREL 75 MG TAB PO SCH (10:16)
[2017-12-05] MEDS: PANTOPRAZOLE SOD 40 MG DELAYED RELEASE TAB PO SCH (10:16)
[2017-12-05] MEDS: ATORVASTATIN 10 MG TAB PO SCH (10:16)
[2017-12-05] MEDS: cloNIDine HCL 0.3 MG TAB PO SCH (10:16)
[2017-12-05] MEDS: PROMETHAZINE INJ 25 MG/ML VIAL IM PRN (12:21)
--- NOTE | 2017-12-05 13:25 | PD.CARD.PN ---
Subjective Subjective Remarks No complaints, no chest pain Objective Medications Current Medications Medications (Trade) Dose Ordered Sig/Arabella Route Start Time Stop Time Status Last Admin (NS Flush) 2 ml BID IV FLUSH 12/03/17 09:00 12/05/17 09:00 (NS Flush) 2 ml UNSCH PRN IV FLUSH 12/03/17 00:15 (Heparin Inj) 5,000 units Q8HR SQ 12/03/17 06:00 12/04/17 21:05 (Morphine Inj) 4 mg Q3H PRN IV PUSH 12/03/17 02:00 12/05/17 10:34 (Albuterol Neb) 2.5 mg Q4HR NEB PRN INH 12/03/17 02:30 Sodium Chloride 1,000 ml @ 70 mls/hr [id number] IV 12/03/17 02:30 12/05/17 07:42 (Plavix) 75 mg DAILY PO 12/03/17 09:00 12/05/17 10:16 (Tenormin) 25 mg DAILY PO 12/03/17 09:00 12/05/17 10:16 (Lipitor) 10 mg DAILY PO 12/03/17 09:00 12/05/17 10:16 (Wellbutrin) 100 mg BID PO 12/03/17 09:00 12/05/17 10:16 (Protonix) 40 mg DAILY PO 12/03/17 09:00 12/05/17 10:16 (Catapres) 0.3 mg DAILY PO 12/03/17 09:00 12/05/17 10:16 (Ativan) 1 mg Q8H PRN PO 12/03/17 04:45 12/04/17 22:01 (Phenergan Inj) 25 mg Q6H PRN IM 12/03/17 13:00 12/05/17 12:21 (Nitrostat Sl) 0.4 mg Q5M PRN SL 12/04/17 16:15 (Imdur) 15 mg DAILY@07 PO 12/05/17 07:00 (Proair Hfa Inh) 2 puff Q6HR INH 12/04/17 18:00 12/05/17 06:07 (Qvar 80 Mcg Inh) 1 puff BID INH 12/04/17 21:00 12/05/17 09:00 (Proair Hfa Inh) 2 puff Q2H PRN INH 12/04/17 16:45 Vital Signs / I&O Vital Signs Date Time Temp Pulse Resp B/P (MAP) Pulse Ox O2 Delivery O2 Flow Rate FiO2 12/05/17 12:00 62 12/05/17 11:00 60 12/05/17 11:00 98.0 60 16 110/65 (80) 99 12/05/17 10:00 68 12/05/17 09:00 69 12/05/17 08:00 68 12/05/17 07:00 60 12/05/17 07:00 98.1 77 16 121/74 (90) 99 12/05/17 04:18 98.0 57 115/67 (83) 100 12/05/17 04:06 55 12/05/17 00:34 98.1 82 16 108/62 (77) 100 12/05/17 00:30 60 12/04/17 21:01 98.7 56 16 105/53 (70) 98 12/04/17 20:01 68 12/04/17 18:00 68 12/04/17 17:00 58 12/04/17 16:00 72 12/04/17 16:00 18 12/04/17 15:00 53 12/04/17 15:00 98.3 55 16 100/66 (77) 100 12/04/17 14:00 58 I/O 12/04/17 12/04/17 12/04/17 12/05/17 12/05/17 12/05/17 07:00 15:00 23:00 07:00 15:00 23:00 Intake Total 620 ml 480 ml Output Total 1100 ml 1500 ml 900 ml Balance -1100 ml -880 ml -420 ml Intake Oral 620 ml 480 ml Output Urine Total 1100 ml 1500 ml 900 ml Physical Exam GENERAL: NAD, AAOx3 SKIN: Warm and dry. HEAD: Atraumatic. Normocephalic. EYES: Pupils equal and round. No scleral icterus. No injection or drainage. ENT: No nasal bleeding or discharge. Mucous membranes pink and moist. NECK: Trachea midline. No JVD. CARDIOVASCULAR: Regular rate and rhythm. RESPIRATORY: No accessory muscle use. Clear to auscultation. Breath sounds equal bilaterally. GASTROINTESTINAL: Abdomen soft, non-tender, nondistended. Hepatic and splenic margins not palpable. MUSCULOSKELETAL: Extremities without clubbing, cyanosis, or edema. No obvious deformities. NEUROLOGICAL: Awake and alert. No obvious cranial nerve deficits. Motor grossly within normal limits. Five out of 5 muscle strength in the arms and legs. Normal speech. PSYCHIATRIC: Appropriate mood and affect; insight and judgment normal. Assessment and Plan Problem List: (1) H/O congenital atrial septal defect (ASD) repair ICD Codes: Z87.74 - Personal history of (corrected) congenital malformations of heart and circulatory system (2) Chest pain ICD Codes: R07.9 - Chest pain, unspecified Assessment and Plan 1) Chest pain atypical Stress test negative No further work up 2) Poor historian Said he had AVR/MVR but not noted on echo May have been a repair without mitral valve ring Echo showing possible shunting of flow across atrial septum 3) Discussed with patient, possible small shunt of flow from left atrium to right atrium Discussed consideration of RIK, but not necessary as inpatient, patient would like to hold off Cardiovascularly stable for discharge Jatinder Ayon DO Dec 05, 2017 13:25
[2017-12-05] MEDS ORDERED: BECL80AE3 INH (14:44)
--- NOTE | 2017-12-05 15:22 | HHI.PR ---
Subjective Remarks no complains up and ambulating telemetry- in SR Objective Vitals Vital Signs Date Time Temp Pulse Resp B/P (MAP) Pulse Ox O2 Delivery O2 Flow Rate FiO2 12/05/17 13:00 75 12/05/17 12:00 62 12/05/17 11:00 60 12/05/17 11:00 98.0 60 16 110/65 (80) 99 12/05/17 10:00 68 12/05/17 09:00 69 12/05/17 08:00 68 12/05/17 07:00 60 12/05/17 07:00 98.1 77 16 121/74 (90) 99 12/05/17 04:18 98.0 57 115/67 (83) 100 12/05/17 04:06 55 12/05/17 00:34 98.1 82 16 108/62 (77) 100 12/05/17 00:30 60 12/04/17 21:01 98.7 56 16 105/53 (70) 98 12/04/17 20:01 68 12/04/17 18:00 68 12/04/17 17:00 58 12/04/17 16:00 72 12/04/17 16:00 18 I/O 12/04/17 12/04/17 12/04/17 12/05/17 12/05/17 12/05/17 07:00 15:00 23:00 07:00 15:00 23:00 Intake Total 620 ml 480 ml Output Total 1100 ml 1500 ml 900 ml Balance -1100 ml -880 ml -420 ml Intake Oral 620 ml 480 ml Output Urine Total 1100 ml 1500 ml 900 ml Result Diagram: 12/04/17 0720 12/04/17 0720 Imaging Last Impressions Myocardial Perfusion Scan Nuc Med 12/04/17 0000 Signed Impressions: Service Date/Time: November 11:10 - CONCLUSION: 1. No scintigraphic findings of ischemia. 2. Apical thinning. 3. Mild hypokinesis along the inferior wall of the heart base. Otherwise, preserved wall motion with estimated ejection fraction of 53%% RISK CATEGORY: Low (<1%% Annual Mortality Rate) Min Beck MD Chest X-Ray 12/02/17 1103 Signed Impressions: Service Date/Time: Saturday, December 02, 2017 22:21 - CONCLUSION: No acute disease. Wilber Dudley MD Objective Remarks awake and alert, oriented x 3 anicteric no rales regular rhythm abdomen soft, nontender extremities no edema A/P Assessment and Plan 1. Atyoical Chest pain History of CAD - troponins not significant Nitro drip- DC change to po Imdur 15 mg daily Morphine prn Asthma Albuterol nebulizers when necessary rstart on albuterol MDi and q Leyla Hypertension/hyperlipidemia Continue home medications FEN Electrolytes: Monitor and replete when necessary DC today OP ff up Iván Floyd MD Dec 05, 2017 15:22
--- NOTE | 2017-12-05 19:40 | HHI.DS ---
Discharge Summary Admission Date Dec 02, 2017 at 23:31 Discharge Date: Dec 05, 2017 Admitting Diagnosis chest pain (1) Chest pain ICD Code: R07.9 - Chest pain, unspecified Procedures none Brief History - From Admission 5-year-old male with past medical history significant for CAD status post PR 3 , hyperlipidemia and asthma presents to the emergency department for evaluation of chest pain. The patient reports that his chest pain started approximately 1 hour prior to his arrival in the emergency department. He states that it was sudden onset, substernal pressure that radiated to his back and down his left arm. The patient has a significant cardiac history including ASD repair in childhood and is status post MVR and AVR. He reports 3 weeks ago he had a stent placed in his LAD at [facility] and he is scheduled for a CABG at [facility]. The patient is a somewhat poor historian stating that he cannot remember the exact institutions where he had many of his procedures done. The patient was admitted to [facility] on 11/21/17 for similar symptoms and was scheduled to have a Lexiscan and echo however left AMA prior to these tests being performed. Patient denies any shortness of breath. No abdominal pain. No nausea/vomiting/diarrhea. No weakness. No lateralizing signs/symptoms. CBC/BMP: 12/04/17 0720 12/04/17 0720 Significant Findings Laboratory Tests Test 12/02/17 22:04 12/03/17 05:08 12/03/17 11:30 12/04/17 07:20 Eosinophils (%) (Auto) 10.2 % (0.0-4.0) 7.3 % (0.0-4.0) Basophils (%) (Auto) 3.1 % (0.0-2.0) Eosinophils # (Auto) 1.1 TH/MM3 (0-0.4) 0.8 TH/MM3 (0-0.4) Basophils # (Auto) 0.3 TH/MM3 (0-0.2) Random Glucose 118 MG/DL (74-106) 61 MG/DL (74-106) Estimat Glomerular Filtration Rate 85 ML/MIN (>89) Troponin I LESS THAN 0.02 NG/ML LESS THAN 0.02 NG/ML LESS THAN 0.02 NG/ML Red Blood Count 4.45 MIL/MM3 (4.50-5.90) Chloride Level 108 MEQ/L (98-107) Imaging Last Impressions Myocardial Perfusion Scan Nuc Med 12/04/17 0000 Signed Impressions: Service Date/Time: November 11:10 - CONCLUSION: 1. No scintigraphic findings of ischemia. 2. Apical thinning. 3. Mild hypokinesis along the inferior wall of the heart base. Otherwise, preserved wall motion with estimated ejection fraction of 53%% RISK CATEGORY: Low (<1%% Annual Mortality Rate) Min Beck MD Chest X-Ray 12/02/172150 Signed Impressions: Service Date/Time: Saturday, December 02, 2017 22:21 - CONCLUSION: No acute disease. Wilber Dudley MD PE at Discharge awake and alert, oriented x 3 anicteric no rales regular rhythm abdomen soft, nontender extremities no edema Pt update on day of discharge no chest pain or shortness of breath no edema Hospital Course 1. Atyoical Chest pain History of CAD - troponins not significant Nitro drip- DC change to po Imdur 15 mg daily Morphine prn Asthma Albuterol nebulizers when necessary coontinue albuterol MDi and q Leyla Hypertension/hyperlipidemia Continue home medications FEN Electrolytes: Monitor and replete when necessary DC today OP ff up Pt Condition on Discharge: Stable Discharge Disposition: Dis to [employer] Discharge Time: <= 30 minutes Discharge Instructions DIET: Follow Instructions for: Heart Healthy Diet Speech Therapy-Diet Recommends: Regular Activities you can perform: Weight Bearing as Katie Activities to Avoid: Strenuous Activity Follow up Referrals: Cardiology - 2 Weeks with Ivis New Medications: Beclomethasone Inh (Qvar Inh) 80 Mcg/Act Aero 1 PUFF INH BID for Resp for 30 Days, #1 INHALER Continued Medications: Albuterol 6.7 GM Inh (Proventil Hfa 6.7 GM Inh) 90 Mcg/Act Aer 2 PUFF INH Q4-6H PRN for SHORTNESS OF BREATH, #1 INHALER 0 Refills Aspirin (Aspirin) 81 Mg Chew 81 MG CHEW ONCE, #1 TAB 0 Refills Atenolol (Atenolol) 25 Mg Tab 25 MG PO DAILY for Blood Pressure Management, #30 TAB Atorvastatin (Atorvastatin) 10 Mg Tab 10 MG PO DAILY for Cholesterol Management, #30 TAB 0 Refills Bupropion HCl (Bupropion HCl) 100 Mg Tab 100 MG PO BID for Control Depression, TAB 0 Refills Clonidine ER 12 HR (Clonidine ER 12 HR) 0.1 Mg Tab 0.3 MG PO DAILY for ADHD, #30 TAB 0 Refills Clopidogrel (Plavix) 75 Mg Tab 75 MG PO DAILY for Blood Clot Prevention, #30 TAB 0 Refills Isosorbide Dinitrate (Isosorbide Dinitrate) 10 Mg Tab 10 MG PO BID, #60 TAB 0 Refills Pantoprazole (Protonix) 40 Mg Tab 40 MG PO DAILY for Reflux, #30 TAB 0 Refills Iván Floyd MD Dec 05, 2017 19:40
== END 2017-12-05 15:25 ==
LOC: NEPC 21:45 → NEDA 23:31 → EEVIPCON 23:31 → HCPC 12-03 03:30 → HCIS 12-03 23:03
PROVIDERS: ADMIT Internal Medicine; ATTEND Internal Medicine
DX: R07.89 Other chest pain (principal); I25.10 Atherosclerotic heart disease of native coronary artery without angina pectoris; J45.909 Unspecified asthma, uncomplicated; R00.0 Tachycardia, unspecified; R00.1 Bradycardia, unspecified; R94.31 Abnormal electrocardiogram [ECG] [EKG]; I10 Essential (primary) hypertension; E78.00 Pure hypercholesterolemia, unspecified; I25.2 Old myocardial infarction; F41.9 Anxiety disorder, unspecified; F32.9 Major depressive disorder, single episode, unspecified; Z79.899 Other long term (current) drug therapy; Z87.74 Personal history of (corrected) congenital malformations of heart and circulatory system; Z95.5 Presence of coronary angioplasty implant and graft
CPT/HCPCS: 71046; 78452; 80048; 82550; 82552; 83735; 83880; 84484; 85025; 85610; 85730; 93005; 93017; 93306; 96361; 96365; 96366; 96372; 96375; 96376; 99285; A9502; G0378; J1170; J1644; J2270; J2550; J2765; J2785; J7030